=== PATIENT | female | born 1930 | race Caucasian/White ===

== ENCOUNTER 2016-12-05 14:51 | Inpatient (IN) ==
[2016-12-05 16:18] LABS: Bilirubin,Urine Negative (Negative); Blood,Urine Trace (Negative); Clarity,Urine Clear (Clear); Color,Urine Yellow (Yellow); Glucose,Urine (UA) Normal (Normal); Ketones,Urine 15 mg/dL (Negative); Leukocyte Esterase,Urine Negative (Negative); Nitrite,Urine Negative (Negative); Protein,Urine 100 mg/dL (Neg-Trace); Specific Gravity,Urine 1.014 (1.010-1.025); Urobilinogen,Urine Normal (Normal)
[2016-12-05 16:22] LABS: Albumin 3.1 g/dL (3.5-5.0); Albumin/Globulin Ratio 0.9 (1.1-2.2); Alkaline Phosphatase 41 Units/L (38-126); Aspartate Amino Transferase 9 Units/L (5-34); BUN/Creatinine Ratio 16 (6-26); Bilirubin,Direct 0.4 mg/dL (0.0-0.5); Bilirubin,Indirect 0.6 mg/dL (0.0-1.2); Blood Urea Nitrogen 19 mg/dL (7-20); Carbon Dioxide 23 mEq/L (19-29); Chloride 102 mEq/L (98-109); Globulin 3.5 g/dL (2.4-3.5); Glucose 162 mg/dL (70-99); Osmolality,Calculated 286 (280-300); Potassium 3.9 mEq/L (3.5-4.5); Sodium 135 mEq/L (136-145); Total Protein 6.6 g/dL (6.0-8.3); eGFR For African Americans 53 (> 60); eGFR For Non-African Americans 44 (> 60)
[2016-12-05 16:24] LABS: Bacteria,Urine None Seen per hpf (None-Few); Hyaline Casts,Urine Few per lpf (None-Few); Squamous Epithelial Cell,Urine Many per lpf (None-Few); WBC,Urine 0-3 per hpf (0-3)
[2016-12-05 16:26] LABS: Alanine Aminotransferase < 6 Units/L (0-55); Ethanol < 10 mg/dL (0-10)
[2016-12-05 16:27] LABS: Amphetamine Screen,Urine Negative ng/mL (Cutoff=1000); Barbiturate Screen,Urine Negative ng/mL (Cutoff=200); Benzodiazepines Screen,Urine Negative ng/mL (Cutoff=200); Cannabinoid Screen,Urine Negative ng/mL (Cutoff = 50); Cocaine Screen,Urine Negative ng/mL (Cutoff= 300); Opiate Screen,Urine Negative ng/mL (Cutoff=300); Phencyclidine Screen,Urine Negative ng/mL (Cutoff=25)
[2016-12-05 16:45] LABS: Thyroid Stimulating Hormone 3.483 mcIU/mL (0.350-4.840)
[2016-12-05 16:50] LABS: Hematocrit 20.1 % (35.3-44.9); Hemoglobin 6.5 g/dL (11.5-15.4); Immature Platelets 6.8 % (1.1-6.1); Mean Corpuscular HGB Conc 32.3 g/dL (31.6-35.5); Mean Corpuscular Hemoglobin 36.5 pg (28.0-33.3); Mean Corpuscular Volume 112.9 fL (83.0-100.0); Mean Platelet Volume 11.1 fL (9.4-12.4); Nucleated Red Blood Cells 0.6 /100 WBC (0); Platelet Count 134 K/mcL (140-400); Red Blood Count 1.78 M/mcL (3.82-4.97); Red Cell Distribution Width 22.4 % (11.5-14.5)
[2016-12-05 17:14] LABS: Anisocytosis 1+ (Not Present); Lymphocytes # 2.5 K/mcL (0.6-4.6); Macrocytosis Present (Not Present); Monocytes # 0.9 K/mcL (0.0-1.3); Neutrophils # 2.9 K/mcL (1.6-8.9); Polychromasia 1+ (Not Present)
[2016-12-05 17:45] LABS: INR 1.1; Prothrombin Time 12.1 Seconds (9.4-12.1)
[2016-12-05 17:48] LABS: Activated Partial Thrombo Time 34.8 Seconds (26.0-36.0)
[2016-12-06 04:55] LABS: Basophils % 0.1 %; Eosinophils % 0.1 %; Hematocrit 26.2 % (35.3-44.9); Immature Granulocytes % 1.1 % (0-4); Lymphocytes % 28.6 %; Mean Corpuscular HGB Conc 33.2 g/dL (31.6-35.5); Mean Corpuscular Hemoglobin 33.2 pg (28.0-33.3); Mean Platelet Volume 10.7 fL (9.4-12.4); Monocytes # 1.6 K/mcL (0.0-1.3); Monocytes % 22.6 %; Neutrophils # 3.3 K/mcL (1.6-8.9); Nucleated Red Blood Cells 0.9 /100 WBC (0); Platelet Count 112 K/mcL (140-400); Red Blood Count 2.62 M/mcL (3.82-4.97); Red Cell Distribution Width 23.2 % (11.5-14.5); Segmented Neutrophils % 47.5 %
[2016-12-06 04:56] LABS: Hemoglobin 8.7 g/dL (11.5-15.4)
[2016-12-06 05:05] LABS: Calcium 8.6 mg/dL (8.6-10.8); Potassium 3.9 mEq/L (3.5-4.5)
[2016-12-06 05:25] LABS: Anisocytosis 2+ (Not Present); Platelet Estimate Slight Decrease (Normal)
[2016-12-06 05:26] LABS: Polychromasia 1+ (Not Present)
[2016-12-07 05:19] LABS: Hematocrit 26.9 % (35.3-44.9); Hemoglobin 9.2 g/dL (11.5-15.4)
[2016-12-07 05:35] LABS: Calcium 8.8 mg/dL (8.6-10.8); Potassium 3.4 mEq/L (3.5-4.5)
[2016-12-08 09:13] LABS: Hematocrit 27.8 % (35.3-44.9); Hemoglobin 9.3 g/dL (11.5-15.4); Mean Corpuscular HGB Conc 33.5 g/dL (31.6-35.5); Mean Corpuscular Hemoglobin 33.9 pg (28.0-33.3); Mean Corpuscular Volume 101.5 fL (83.0-100.0); Mean Platelet Volume 11.6 fL (9.4-12.4); Nucleated Red Blood Cells 0.4 /100 WBC (0); Platelet Count 122 K/mcL (140-400); Red Blood Count 2.74 M/mcL (3.82-4.97)
[2016-12-08 09:28] LABS: Calcium 8.8 mg/dL (8.6-10.8); Potassium 3.2 mEq/L (3.5-4.5)
[2016-12-08 09:34] LABS: Lymphocytes # 4.1 K/mcL (0.6-4.6); Monocytes # 2.1 K/mcL (0.0-1.3); Neutrophils # 7.9 K/mcL (1.6-8.9); Platelet Estimate Normal (Normal); Reactive Lymphocytes Present (Not Present)
[2016-12-08 09:35] LABS: Polychromasia 1+ (Not Present)
[2016-12-09 08:38] LABS: Calcium 7.9 mg/dL (8.6-10.8); Potassium 3.5 mEq/L (3.5-4.5)
[2016-12-09 09:14] LABS: Basophils % 0.1 %; Eosinophils % 0.1 %; Mean Platelet Volume 11.3 fL (9.4-12.4)
[2016-12-09 09:16] LABS: Hematocrit 25.2 % (35.3-44.9); Hemoglobin 8.1 g/dL (11.5-15.4); Immature Granulocytes % 1.1 % (0-4); Immature Platelets 6.1 % (1.1-6.1); Lymphocytes # 1.4 K/mcL (0.6-4.6); Lymphocytes % 15.4 %; Mean Corpuscular HGB Conc 32.1 g/dL (31.6-35.5); Mean Corpuscular Hemoglobin 32.9 pg (28.0-33.3); Mean Corpuscular Volume 102.4 fL (83.0-100.0); Monocytes % 32.3 %; Neutrophils # 4.5 K/mcL (1.6-8.9); Nucleated Red Blood Cells 0.3 /100 WBC (0); Red Blood Count 2.46 M/mcL (3.82-4.97); Red Cell Distribution Width 21.9 % (11.5-14.5)
[2016-12-09 09:17] LABS: Monocytes # 2.8 K/mcL (0.0-1.3); Platelet Count 96 K/mcL (140-400)
[2016-12-10 05:24] LABS: Hematocrit 25.8 % (35.3-44.9); Hemoglobin 8.3 g/dL (11.5-15.4); Mean Corpuscular HGB Conc 32.2 g/dL (31.6-35.5); Mean Corpuscular Hemoglobin 32.7 pg (28.0-33.3); Mean Corpuscular Volume 101.6 fL (83.0-100.0); Mean Platelet Volume 11.6 fL (9.4-12.4); Nucleated Red Blood Cells 0.3 /100 WBC (0); Platelet Count 115 K/mcL (140-400); Red Blood Count 2.54 M/mcL (3.82-4.97); Red Cell Distribution Width 21.2 % (11.5-14.5)
[2016-12-10 05:38] LABS: Calcium 8.4 mg/dL (8.6-10.8); Potassium 3.1 mEq/L (3.5-4.5)
[2016-12-10 06:37] LABS: Lymphocytes # 1.3 K/mcL (0.6-4.6); Monocytes # 3.8 K/mcL (0.0-1.3); Neutrophils # 10.7 K/mcL (1.6-8.9); Platelet Estimate Slight Decrease (Normal)
[2016-12-10 06:38] LABS: Hypochromasia Present (Not Present)
[2016-12-10 17:19] LABS: Source,Synovial Fluid left knee
[2016-12-10 17:41] LABS: Glucose,Synovial Fluid 169 mg/dL (No Ref Range)
[2016-12-10 18:11] LABS: Appearance,Synovial Fluid Clear (Clear-Hazy); Color,Synovial Fluid Straw (Straw)
[2016-12-11 10:49] LABS: Hematocrit 22.1 % (35.3-44.9); Hemoglobin 7.2 g/dL (11.5-15.4); Mean Corpuscular HGB Conc 32.6 g/dL (31.6-35.5)
[2016-12-11 10:50] LABS: Eosinophils % 0.1 %; Immature Granulocytes % 1.1 % (0-4); Immature Platelets 6.7 % (1.1-6.1); Lymphocytes # 1.6 K/mcL (0.6-4.6); Lymphocytes % 21.7 %; Mean Corpuscular Volume 101.4 fL (83.0-100.0); Monocytes % 26.8 %; Neutrophils # 3.8 K/mcL (1.6-8.9); Nucleated Red Blood Cells 0.4 /100 WBC (0); Red Blood Count 2.18 M/mcL (3.82-4.97); Red Cell Distribution Width 21.8 % (11.5-14.5); Segmented Neutrophils % 50.3 %
[2016-12-11 10:51] LABS: Platelet Count 80 K/mcL (140-400)
[2016-12-11 10:59] LABS: Potassium 3.3 mEq/L (3.5-4.5)
[2016-12-11 11:42] LABS: Anisocytosis 2+ (Not Present); Basophilic Stippling 1+ (Not Present); Helmet Cells Present (Not Present); Platelet Estimate Decreased (Normal)
[2016-12-11 11:43] LABS: Macrocytosis Present (Not Present)
[2016-12-12 12:27] LABS: Basophils % 0.2 %; Eosinophils % 0.6 %; Hematocrit 22.5 % (35.3-44.9); Hemoglobin 7.2 g/dL (11.5-15.4); Immature Granulocytes % 1.1 % (0-4); Lymphocytes # 1.8 K/mcL (0.6-4.6); Lymphocytes % 28.3 %; Mean Corpuscular Hemoglobin 33.3 pg (28.0-33.3); Mean Corpuscular Volume 104.2 fL (83.0-100.0); Mean Platelet Volume 11.9 fL (9.4-12.4); Monocytes # 1.5 K/mcL (0.0-1.3); Monocytes % 23.8 %; Neutrophils # 2.9 K/mcL (1.6-8.9); Red Blood Count 2.16 M/mcL (3.82-4.97); Red Cell Distribution Width 21.7 % (11.5-14.5)
[2016-12-12 12:28] LABS: Platelet Count 88 K/mcL (140-400)
[2016-12-12 12:44] LABS: Calcium 8.3 mg/dL (8.6-10.8); Potassium 3.8 mEq/L (3.5-4.5)
[2016-12-12 12:46] LABS: Platelet Estimate Decreased (Normal)
[2016-12-12 12:47] LABS: Basophilic Stippling 1+ (Not Present); Macrocytosis Present (Not Present)
[2016-12-12 18:48] VITALS: BP 163/63
== END 2016-12-12 19:26 | DRG 812 ==
LOC: EMEROO 14:51 → 3ANU 14:51 → SUATTDRO 18:52 → 3ANU 20:14
PROVIDERS: ADMIT Family Medicine; ATTEND Internal Medicine Endocrinology, Diabetes & Metabolism

== ENCOUNTER 2016-12-27 09:16 | Observation (INO) ==
--- NOTE | 2016-12-27 09:31 | Emergency Department Note ---
Disposition Clinical Impression: Anemia Qualifiers: Iron deficiency anemia type: unspecified iron deficiency Disposition: Admitted As Inpatient Condition: Fair General Adult HPI - General Chief complaint: ED General Medical Stated complaint: low hgb Time Seen by Provider: 12/27/16 09:18 Source: EMS Limitations: no limitations Nursing Notes Reviewed: Yes Vital Signs Reviewed: Yes - History of Present Illness HPI Narrative: Patient presents from the [facility] due to abnormal labs. Per report lab so was 5.7. Patient does admit to some shortness of breath but has no other complaints. Patient states she is not sure why she is here. Patient denies chest pain denies dizziness. Review of the medical chart reveals the patient has had similar symptoms in the past. Patient denies blood from her stool or nausea or vomiting. Pain Scale: 0 - Related Data Home Medications Medication Instructions Recorded Confirmed Cetirizine HCl [All Day Allergy] 10 mg PO DAILY PRN 09/30/16 09/30/16 Cyclobenzaprine HCl 5 mg PO HS PRN 09/30/16 12/05/16 Donepezil HCl [Aricept] 10 mg PO HS 09/30/16 09/30/16 Ferrous Sulfate 325 mg PO BIDWM 09/30/16 09/30/16 Insulin ASPART [NovoLOG] 7 unit SQ BID 09/30/16 12/05/16 Insulin DETEMIR [Levemir] 12 unit SQ HS 09/30/16 12/05/16 Levothyroxine [Synthroid] 75 mcg PO 0630 09/30/16 09/30/16 Meclizine HCl [Verticalm] 25 mg PO TID PRN 09/30/16 09/30/16 Simvastatin [Zocor] 40 mg PO HS 09/30/16 12/05/16 Aspirin Enteric Coated [Aspirin EC] 81 mg PO DAILY 12/05/16 12/05/16 Lisinopril/Hydrochlorothiazide 1 each PO DAILY 12/05/16 12/05/16 [Zestoretic 20-12.5 mg Tablet] Previous Rx's Medication Instructions Recorded Amlodipine [Norvasc] 5 mg PO DAILY #30 tablet 12/12/16 Labetalol [Trandate] 100 mg PO BID #60 tablet 12/12/16 Naproxen [Naprosyn] 250 mg PO BIDWM #14 tablet 03/02/17 Omeprazole [PriLOSEC] 20 mg PO BIDAC #60 cap 12/12/16 Allergies Allergy/AdvReac Type Severity Reaction Status Date / Time Penicillins AdvReac Palpitation Verified 09/30/16 22:03 s Vasoconstrictors AdvReac Confusion Uncoded 09/30/16 22:03 All systems ED: reviewed and negative except as stated. Past Medical History - Past Medical History Source: patient Medical history: Reports: atrial fibrillation, dementia, diabetes, GERD, hyperlipidemia, hypertension, renal disease, thyroid disease Surgical history: Reports: appendectomy Psychiatric history: Reports: no psych history MOLD BURNER history: Reports: no MOLD BURNER history - Social History Smoking Status: Never smoker Smokeless Tobacco Status: No Alcohol use: Reports: none Drug use: Reports: none Physical Exam - General Limitations: altered mental status General appearance: alert - Head Head exam: atraumatic, normocephalic, normal inspection - Eye Eye exam: Present: normal appearance, PERRL, EOMI - ENT ENT exam: normal exam, normal oropharynx, mucous membranes moist - Neck Neck exam: Present: normal inspection, full ROM, trachea midline - Chest Chest inspection: Present: normal inspection, symmetric chest wall rise - Respiratory Respiratory exam: Present: normal lung sounds bilaterally - Cardiovascular Cardiovascular exam: Present: regular rate, normal rhythm, normal heart sounds - Abdominal Exam Abdominal exam: Present: soft, Non-Tender. Absent: tenderness, distention, guarding, rebound, rigidity - Extremities Exam Extremities exam: Present: normal inspection, full ROM. Absent: tenderness, pedal edema - Back Exam Back exam: Present: normal inspection, full ROM. Absent: tenderness - Neurological Exam Neurological exam: Present: alert, oriented X3 - Psychiatric Psychiatric exam: Present: normal affect, normal mood - Skin Skin exam: Present: warm, dry, intact, normal color Course Vital Signs Temperature 97.2 F L 12/27/16 09:18 Pulse Rate 65 12/27/16 09:18 Respiratory Rate 18 12/27/16 09:18 Blood Pressure 163/101 12/27/16 09:18 O2 Sat by Pulse Oximetry 91 L 12/27/16 09:18 Temperature 97.2 F L 12/27/16 09:18 Pulse Rate 59 12/27/16 10:20 Respiratory Rate 18 12/27/16 10:20 Blood Pressure 162/65 12/27/16 10:20 O2 Sat by Pulse Oximetry 93 L 12/27/16 10:20 Oxygen Delivery Oxygen Delivery Nasal Cannula Medical Decision Making - Lab Data Result diagrams: 12/27/16 09:40 12/27/16 09:40 Lab Results 12/27/16 12/27/16 12/27/16 Range/Units 09:40 09:40 09:40 WBC 10.9 (4.3-11.1) K/mcL RBC 1.78 L (3.82-4.97) M/mcL Hgb 5.7 L* (11.5-15.4) g/dL Hct 18.1 L (35.3-44.9) % MCV 101.7 H (83.0-100.0) fL MCH 32.0 (28.0-33.3) pg MCHC 31.5 L (31.6-35.5) g/dL RDW 21.2 H (11.5-14.5) % Plt Count 139 L (140-400) K/mcL MPV 11.8 (9.4-12.4) fL Seg Neutrophils % 66.0 % Lymphocytes % 14.0 % Monocytes % 18.0 % Basophils % 2.0 % Neutrophils # 7.2 (1.6-8.9) K/mcL Lymphocytes # 1.5 (0.6-4.6) K/mcL Monocytes # 2.0 H (0.0-1.3) K/mcL Basophils # 0.2 (0.0-0.2) K/mcL Nucleated RBCs/100 WBC 0.8 H (0) /100 WBC Smudge Cells Present A (Not Present) Platelet Estimate Normal (Normal) Hypochromasia Present A (Not Present) Anisocytosis 3+ A (Not Present) Microcytosis Present A (Not Present) PT 12.2 H (9.4-12.1) Seconds INR 1.1 APTT 31.8 (26.0-36.0) Seconds Sodium 134 L (136-145) mEq/L Potassium 4.0 (3.5-4.5) mEq/L Chloride 102 (98-109) mEq/L Carbon Dioxide 25 (19-29) mEq/L BUN 29 H (7-20) mg/dL Creatinine 1.70 H (0.57-1.11) mg/dL Est GFR ( Amer) 34 L (> 60) Est GFR (Non-Af Amer) 28 L (> 60) BUN/Creatinine Ratio 17 (6-26) Glucose 265 H (70-99) mg/dL Calculated Osmolality 293 (280-300) Lactic Acid (0.5-2.2) mmol/L Calcium 8.8 (8.6-10.8) mg/dL Total Bilirubin 0.9 (0.2-1.2) mg/dL AST 7 (5-34) Units/L ALT 10 (0-55) Units/L Alkaline Phosphatase 54 (38-126) Units/L Troponin I (0-0.03) ng/mL B-Natriuretic Peptide (0-100) pg/mL Serum Total Protein 6.6 (6.0-8.3) g/dL Albumin 2.8 L (3.5-5.0) g/dL Globulin 3.8 H (2.4-3.5) g/dL Albumin/Globulin Ratio 0.7 L (1.1-2.2) Stool Occult Blood (Negative) Blood Type Antibody Screen Crossmatch 12/27/16 12/27/16 12/27/16 Range/Units 09:40 09:40 09:40 WBC (4.3-11.1) K/mcL RBC (3.82-4.97) M/mcL Hgb (11.5-15.4) g/dL Hct (35.3-44.9) % MCV (83.0-100.0) fL MCH (28.0-33.3) pg MCHC (31.6-35.5) g/dL RDW (11.5-14.5) % Plt Count (140-400) K/mcL MPV (9.4-12.4) fL Seg Neutrophils % % Lymphocytes % % Monocytes % % Basophils % % Neutrophils # (1.6-8.9) K/mcL Lymphocytes # (0.6-4.6) K/mcL Monocytes # (0.0-1.3) K/mcL Basophils # (0.0-0.2) K/mcL Nucleated RBCs/100 WBC (0) /100 WBC Smudge Cells (Not Present) Platelet Estimate (Normal) Hypochromasia (Not Present) Anisocytosis (Not Present) Microcytosis (Not Present) PT (9.4-12.1) Seconds INR APTT (26.0-36.0) Seconds Sodium (136-145) mEq/L Potassium (3.5-4.5) mEq/L Chloride (98-109) mEq/L Carbon Dioxide (19-29) mEq/L BUN (7-20) mg/dL Creatinine (0.57-1.11) mg/dL Est GFR ( Amer) (> 60) Est GFR (Non-Af Amer) (> 60) BUN/Creatinine Ratio (6-26) Glucose (70-99) mg/dL Calculated Osmolality (280-300) Lactic Acid 1.3 (0.5-2.2) mmol/L Calcium (8.6-10.8) mg/dL Total Bilirubin (0.2-1.2) mg/dL AST (5-34) Units/L ALT (0-55) Units/L Alkaline Phosphatase (38-126) Units/L Troponin I 0.01 (0-0.03) ng/mL B-Natriuretic Peptide 225 H (0-100) pg/mL Serum Total Protein (6.0-8.3) g/dL Albumin (3.5-5.0) g/dL Globulin (2.4-3.5) g/dL Albumin/Globulin Ratio (1.1-2.2) Stool Occult Blood (Negative) Blood Type Antibody Screen Crossmatch 12/27/16 12/27/16 Range/Units 09:40 10:30 WBC (4.3-11.1) K/mcL RBC (3.82-4.97) M/mcL Hgb (11.5-15.4) g/dL Hct (35.3-44.9) % MCV (83.0-100.0) fL MCH (28.0-33.3) pg MCHC (31.6-35.5) g/dL RDW (11.5-14.5) % Plt Count (140-400) K/mcL MPV (9.4-12.4) fL Seg Neutrophils % % Lymphocytes % % Monocytes % % Basophils % % Neutrophils # (1.6-8.9) K/mcL Lymphocytes # (0.6-4.6) K/mcL Monocytes # (0.0-1.3) K/mcL Basophils # (0.0-0.2) K/mcL Nucleated RBCs/100 WBC (0) /100 WBC Smudge Cells (Not Present) Platelet Estimate (Normal) Hypochromasia (Not Present) Anisocytosis (Not Present) Microcytosis (Not Present) PT (9.4-12.1) Seconds INR APTT (26.0-36.0) Seconds Sodium (136-145) mEq/L Potassium (3.5-4.5) mEq/L Chloride (98-109) mEq/L Carbon Dioxide (19-29) mEq/L BUN (7-20) mg/dL Creatinine (0.57-1.11) mg/dL Est GFR ( Amer) (> 60) Est GFR (Non-Af Amer) (> 60) BUN/Creatinine Ratio (6-26) Glucose (70-99) mg/dL Calculated Osmolality (280-300) Lactic Acid (0.5-2.2) mmol/L Calcium (8.6-10.8) mg/dL Total Bilirubin (0.2-1.2) mg/dL AST (5-34) Units/L ALT (0-55) Units/L Alkaline Phosphatase (38-126) Units/L Troponin I (0-0.03) ng/mL B-Natriuretic Peptide (0-100) pg/mL Serum Total Protein (6.0-8.3) g/dL Albumin (3.5-5.0) g/dL Globulin (2.4-3.5) g/dL Albumin/Globulin Ratio (1.1-2.2) Stool Occult Blood Negative (Negative) Blood Type O NEGATIVE Antibody Screen NEGATIVE Crossmatch See Detail - EKG Data EKG #1 EKG attestation: Yes I reviewed and interpreted this EKG. EKG shows normal: sinus rhythm Rate: normal Rhythm: NSR Critical Care Time Total Critical Care Time: 30 Attestation: Critical care performed: Time is exclusive of separately billable procedures. Time includes: direct patient care, patient reassessment, coordination of patient care, interpretation of data (laboratory data, radiology data, and respiratory data), review of patient's medical records, medical consultation and documentation of patient care. Procedures included in critical care time: Procedures excluded from critical care time:
[2016-12-27 10:03] LABS: Mean Corpuscular Volume 101.7 fL (83.0-100.0); Red Cell Distribution Width 21.2 % (11.5-14.5)
[2016-12-27 10:05] LABS: Hematocrit 18.1 % (35.3-44.9); Mean Corpuscular HGB Conc 31.5 g/dL (31.6-35.5); Mean Platelet Volume 11.8 fL (9.4-12.4); Nucleated Red Blood Cells 0.8 /100 WBC (0); Platelet Count 139 K/mcL (140-400); Red Blood Count 1.78 M/mcL (3.82-4.97)
[2016-12-27 10:07] LABS: Hemoglobin 5.7 g/dL (11.5-15.4)
[2016-12-27 10:19] LABS: Albumin 2.8 g/dL (3.5-5.0); Albumin/Globulin Ratio 0.7 (1.1-2.2); Bilirubin,Total 0.9 mg/dL (0.2-1.2); Calcium 8.8 mg/dL (8.6-10.8); Globulin 3.8 g/dL (2.4-3.5); Total Protein 6.6 g/dL (6.0-8.3)
[2016-12-27 10:23] LABS: Anisocytosis 3+ (Not Present); Basophils # 0.2 K/mcL (0.0-0.2); Hypochromasia Present (Not Present); INR 1.1; Lymphocytes # 1.5 K/mcL (0.6-4.6); Microcytosis Present (Not Present); Neutrophils # 7.2 K/mcL (1.6-8.9); Platelet Estimate Normal (Normal); Prothrombin Time 12.2 Seconds (9.4-12.1)
[2016-12-27 10:24] LABS: Smudge Cells Present (Not Present)
[2016-12-27 10:26] LABS: Activated Partial Thrombo Time 31.8 Seconds (26.0-36.0)
[2016-12-27] MEDS ORDERED: Ondansetron 4 MG/2 ML VIAL IV ONE (11:00)
[2016-12-27] MEDS ORDERED: 0.9 % Sodium Chloride 250 ML ONE ×2 (13:19→17:44)
[2016-12-27] MEDS ORDERED: Naloxone 0.4 MG/ML INJ IVP PRN (13:20)
[2016-12-27] MEDS ORDERED: Acetaminophen 325 MG TABLET PO PRN (13:20)
--- NOTE | 2016-12-27 14:27 | Internal Med History&Physical ---
Date of Encounter: 12/27/16 Time of Encounter: 13:15 Assessment and Plan (1) Severe anemia Current visit: Yes Status: Acute Acute on chronic anemia. Patient with severe anemia. Will transfuse 2 units of packed red blood cells. 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 Observation in the hospital for now. (2) Type 2 diabetes mellitus Current visit: Yes Status: Chronic Monitor blood sugars. Sliding scale insulin. Diabetic diet. Qualifiers: Diabetes mellitus complication status: with kidney complications Diabetes mellitus complication detail: with chronic kidney disease Diabetes mellitus residential insulin use: with exterminator termite use Chronic kidney disease stage: stage 3 (moderate) Qualified Code(s): E11.22 - Type 2 diabetes mellitus with diabetic chronic kidney disease; N18.3 - Chronic kidney disease, stage 3 ( moderate); Z79.4 - exterminator helper (current) use of insulin (3) CKD (chronic kidney disease) stage 3, GFR 30-59 ml/min Current visit: No Status: Chronic BUN and creatinine around her baseline. Will follow renal function closely. (4) Essential hypertension Current visit: Yes Status: Chronic Uncontrolled. Resume home medications. Monitor blood pressure closely. (5) Pedal edema Current visit: Yes Status: Chronic Will give 1 dose of IV Lasix between transfusions. Internal Medicine - H&P: HPI Chief complaint: Generalized weakness and fatigue Admitted From: Emergency Dept Plans for Post Hospital Care: Transfer Senior Care Facility History of present illness: Ms. Booth is a 86 year old female with history of atrial fibrillation, dementia , diabetes, hypertension and chronic anemia was sent to the ER from her long-term with generalized weakness and fatigue. She was found to have low hemoglobin counts and blood work. She has been having some nausea. Denies any vomiting. She had been hospitalized here last month and had been worked up for anemia and was not found to have any acute source of bleeding. She underwent bone marrow biopsy. 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 She follows up with oncology at [facility]. She denies any melena or hematochezia. No hematemesis. No cough shortness of breath or fevers. No chest pain or abdominal pain. She does develop swelling in her lower extremities. Past Med Surg Social Fam HX - Past Medical History Source: old records reviewed Medical history: atrial fibrillation, dementia, diabetes, GERD, hyperlipidemia, hypertension, renal disease, thyroid disease Psychiatric history: no psych history - Past Surgical History Surgical History: appendectomy - Social History Smoking Status: Never smoker Smokeless Tobacco Status: No Alcohol use: none Drug use: none - Family History Mother Living Status: Hx Family Cardiac Disorders: Yes (ID) Internal Medicine - H&P: Meds Cetirizine HCl [All Day Allergy] 10 mg PO DAILY PRN 09/30/16 [History] Cyclobenzaprine HCl 5 mg PO HS PRN 09/30/16 [History] Donepezil HCl [Aricept] 10 mg PO HS 09/30/16 [History] Ferrous Sulfate 325 mg PO BIDWM 09/30/16 [History] Insulin ASPART [NovoLOG] 7 unit SQ TID 09/30/16 [History] Insulin DETEMIR [Levemir] 15 unit SQ HS 09/30/16 [History] Levothyroxine [Synthroid] 75 mcg PO DAILY 09/30/16 [History] Meclizine HCl [Verticalm] 25 mg PO TID PRN 09/30/16 [History] Simvastatin [Zocor] 40 mg PO HS 09/30/16 [History] Aspirin Enteric Coated [Aspirin EC] 81 mg PO DAILY 12/05/16 [History] Lisinopril/Hydrochlorothiazide [Zestoretic 20-12.5 mg Tablet] 1 tab PO DAILY [History] Amlodipine [Norvasc] 5 mg PO DAILY #30 tablet 12/12/16 [Rx] Labetalol [Trandate] 100 mg PO BID #60 tablet 12/12/16 [Rx] Omeprazole [PriLOSEC] 20 mg PO BIDAC #60 cap 12/12/16 [Rx] Acetaminophen [Tylenol] 1,000 mg PO BID PRN 12/27/16 [History] Bisacodyl [Dulcolax] 10 mg RC DAILY PRN 12/27/16 [History] Magnesium Hydroxide [Milk of Magnesia] 30 ml PO DAILY PRN 12/27/16 [History] Prochlorperazine Maleate [Compazine] 10 mg PO Q6HR PRN 12/27/16 [History] Allergies Penicillins Adverse Reaction (Verified 09/30/16 22:03) Palpitations Vasoconstrictors Adverse Reaction (Uncoded 09/30/16 22:03) Confusion All Systems PM: A 10-system review of systems was performed and is negative for pertinent findings except as documented above in the HPI. - Constitutional Constitutional: fatigue, lethargy, malaise, no chills, no fever(s), no night sweats - EENT Eyes: no change in vision, no discharge, no pain, no photophobia Ears: no ear discharge, no ear pain, no tinnitus Nose, mouth and throat: no dysphagia, no nasal discharge, no neck pain, no sore throat - Cardiovascular Cardiovascular ROS IM: no chest pain, no diaphoresis, no dyspnea, no lightheadedness, no palpitations, no syncope - Respiratory Respiratory: no cough, no dyspnea, no wheezing, no excessive phlegm production - Gastrointestinal Gastrointestinal: no abdominal pain, no diarrhea, no hematemesis, no hematochezia, no melena, no nausea, no vomiting - Genitourinary Genitourinary: no change in urinary stream, no dysuria, no flank pain, no hematuria - Musculoskeletal Musculoskeletal ROS IM: no numbness, no tingling - Integumentary Integumentary IM: no rash, no unusual bruising - Neurological Neurological ROS: no confusion, no convulsions, no focal weakness, no numbness, no tingling, no tremor(s) - Hematologic/Lymphatic Hematologic/Lymphatic: no easy bruising - Constitutional Vitals: Temp Pulse Resp BP Pulse Ox 97.3 F L 61 16 162/67 96 12/27/16 14:10 12/27/16 14:10 12/27/16 14:10 12/27/16 14:10 12/27/16 14:10 General appearance: Present: cooperative, A&O X 2, mild distress, answers questions appropriately - Eye Eye exam: Present: EOMI, PERRL, conjuntiva pink, sclera anicteric Additional comments: Conjunctival pallor present - ENT ENT exam: Present: mucous membranes moist - Neck Neck exam general surgery: Present: supple, trachea midline. Absent: lymphadenopathy - Respiratory Respiratory exam: Present: CTAB. Absent: accessory muscle use, rales, rhonchi, wheezes - Cardiovascular Cardiovascular exam: Present: RRR, +S1, +S2, systolic murmur. Absent: diastolic murmur, gallop, rubs - GI/Abdominal GI/Abdominal exam: Present: normal bowel sounds, soft, no peritoneal signs. Absent: distended, tenderness - Extremities Exam Extremities exam: Present: warm, radial pulses palpable and symetrical. Absent : calf tenderness, cyanotic, pedal edema - Neurological Exam Neurological exam: Present: alert, CN II-XII intact, no focal deficits. Absent : facial droop, speech deficit - Skin Skin exam: Present: dry, intact, pallor Internal Med - H&P Results - Labs CBC & Chem 7: 12/27/16 09:40 12/27/16 09:40 - Attending Attestation This document has been at least partially created by [employer] recognition technology by Dr. Muñoz. Errors in grammar, wording or other phrases may exist. If errors are found after the documentation is signed, they will be addressed individually in the addendum section of this document when appropriate. - VTE Reasons for not Prescribing Prophylaxis: Treatment not Indicated - Low risk for VTE
[2016-12-27] MEDS ORDERED: Furosemide 40 MG/4 ML VIAL IVP ONE (14:34)
[2016-12-27] MEDS ORDERED: Bisacodyl 10 MG RECTAL SUPPOSITORY RC PRN (14:35)
[2016-12-27] MEDS ORDERED: Loratadine 10 MG TABLET PO PRN (14:35)
[2016-12-27] MEDS ORDERED: *HR* Dextrose 50 % in Water (Syg) 50 ML SYRINGE IVP PRN (14:50)
[2016-12-27] MEDS ORDERED: Dextrose Gel 15 GM PO PRN ×2 (14:50)
[2016-12-27] MEDS ORDERED: D5% in Water 1,000 ML IV PRN (14:50)
--- NOTE | 2016-12-27 16:44 | Electrocardiograph Report ---
[address] [address] Test Date: 2016-12-27 Pat Name: Morteza Booth Department: 102 Room: [facility] Gender: F Director [employer]: : [id number] Requested By: Be Kerr Order Number: [id number] Reading MD: Lilia Swenson Measurements Intervals [place] Rate: 68 P: 3 ID: [id number] QRS: -23 QRSD: 100 T: 31 QT: 412 QTc: 430 Interpretive Statements SINUS RHYTHM BORDERLINE LEFT AXIS DEVIATION [QRS AXIS < -20] Electronically Signed On 12-27-2016 16:42:59 EDT by Lilia Swenson
--- NOTE | 2016-12-27 17:31 | Oncology Inp Consult Note ---
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 Consider wkly labs with supportive transfusion in clinic Rx with hypomethylating agents can be considered as an outpatient and ESAs PAtient was discussed bone marrow findings and treatment plan as above.She will be seen in clinic next -Friday to discuss and initiate above Rx plan. - Data of Consult Requesting Physician: Anila Valera MD Primary Care Provider: PCP NO - Consult Narrative Reason for consult: anemia, MDS History of present illness: HPI This 86-year-old female with medical history significant for hypertension, diabetes mellitus, kidney problems, renal insufficiency seen in the clinic for further evaluation off anemia. Hemoglobin in July 2014 was 12.5 subsequently declined to 7.1 in August 2016 and is currently at 7.6 2016. Patient received transfusion support previously. She had a colonoscopy in 2015 which was a poor preparation and no other findings reported. Her white blood cell count was 6.8 hemoglobin 7.6 and platelets of 1 65,000 10/30/2016. Creatinine is 1.4, GFR at 40s 26 TSH 4.6 and ferritin 425. Underwent upper GI endoscopy and colonoscopy no active bleeding was found. She also completed a bone marrow aspiration biopsy in the hospital for further evaluation of her anemia. BM bx -CMML, monocytosis, monoblasts promocytes and dysplastic granulocytes consistent with MDS CD4 positive blasts are upto 10-20%-CMML-2 12/11/16 Is hospitalized again with a hemoglobin of around 5.7 g she is currently receiving blood transfusion. She has lower extremity swelling feels cold fatigued and shortness of breath with exertion. Past Med Surg Social Fam HX - Past Medical History Medical history: atrial fibrillation, dementia, diabetes, GERD, hyperlipidemia, hypertension, renal disease, thyroid disease Psychiatric history: no psych history - Past Surgical History Surgical History: appendectomy - Social History Smoking Status: Never smoker Smokeless Tobacco Status: No Alcohol use: none Drug use: none - Family History Mother Living Status: Hx Family Cardiac Disorders: Yes ([place]) Medications and Allergies Cetirizine HCl [All Day Allergy] 10 mg PO DAILY PRN 09/30/16 [History] Cyclobenzaprine HCl 5 mg PO HS PRN 09/30/16 [History] Donepezil HCl [Aricept] 10 mg PO HS 09/30/16 [History] Ferrous Sulfate 325 mg PO BIDWM 09/30/16 [History] Insulin ASPART [NovoLOG] 7 unit SQ TID 09/30/16 [History] Insulin DETEMIR [Levemir] 15 unit SQ HS 09/30/16 [History] Levothyroxine [Synthroid] 75 mcg PO DAILY 09/30/16 [History] Meclizine HCl [Verticalm] 25 mg PO TID PRN 09/30/16 [History] Simvastatin [Zocor] 40 mg PO HS 09/30/16 [History] Aspirin Enteric Coated [Aspirin EC] 81 mg PO DAILY 12/05/16 [History] Lisinopril/Hydrochlorothiazide [Zestoretic 20-12.5 mg Tablet] 1 tab PO DAILY [History] Amlodipine [Norvasc] 5 mg PO DAILY #30 tablet 12/12/16 [Rx] Labetalol [Trandate] 100 mg PO BID #60 tablet 12/12/16 [Rx] Omeprazole [PriLOSEC] 20 mg PO BIDAC #60 cap 12/12/16 [Rx] Acetaminophen [Tylenol] 1,000 mg PO BID PRN 12/27/16 [History] Bisacodyl [Dulcolax] 10 mg RC DAILY PRN 12/27/16 [History] Magnesium Hydroxide [Milk of Magnesia] 30 ml PO DAILY PRN 12/27/16 [History] Prochlorperazine Maleate [Compazine] 10 mg PO Q6HR PRN 12/27/16 [History] Allergies Penicillins Adverse Reaction (Verified 09/30/16 22:03) Palpitations Vasoconstrictors Adverse Reaction (Uncoded 09/30/16 22:03) Confusion Review of systems: as in HPI Oncology - Exam - Constitutional Vitals: Temp Pulse Resp BP Pulse Ox 97.8 F 65 16 163/71 98 12/27/16 14:25 12/27/16 14:25 12/27/16 14:25 12/27/16 14:25 12/27/16 14:25 General appearance: obese - Head Head exam: Present: atraumatic, normal inspection - Eye Eye exam: Present: sclera anicteric - ENT ENT exam: Present: mucous membranes moist - Neck Neck exam: Present: normal inspection - Respiratory Respiratory exam: Present: CTAB - Cardiovascular Cardiovascular exam: Present: +S1, +S2 - GI/Abdominal GI/Abdominal exam: Present: normal bowel sounds, soft - Extremities Exam Extremities exam: Present: pedal edema - Neurological Exam Neurological exam: Present: alert, CN II-XII intact, oriented X3 - Skin Skin exam: Present: pallor Oncology - Results - Labs Labs: as in hPI Consult Discharge Plan - Plan Referrals: NO,PCP [Primary Care Provider] -
[2016-12-27] MEDS: Insulin LISPRO 300 UNITS/3 ML VIAL SQ SCH (17:33)
[2016-12-27] MEDS ORDERED: Insulin LISPRO 300 UNITS/3 ML VIAL SQ SCH (21:00)
[2016-12-27] MEDS ORDERED: Insulin DETEMIR 100 UNIT/ML X5UNITS SQ SCH (21:00)
[2016-12-27] MEDS ORDERED: amLODIPine 5 MG TABLET PO ONE (22:41)
[2016-12-27 23:19] LABS: Hematocrit 29.9 % (35.3-44.9); Hemoglobin 9.7 g/dL (11.5-15.4)
[2016-12-28] MEDS: Insulin LISPRO 300 UNITS/3 ML VIAL SQ SCH (08:04)
[2016-12-28] MEDS ORDERED: Furosemide 40 MG/4 ML VIAL IVP STA (08:22)
[2016-12-28] MEDS ORDERED: Lisinopril-HCTZ 20-12.5mg TABLET PO SCH (09:00)
[2016-12-28] MEDS ORDERED: Aspirin Enteric Coated 81 MG Tablet PO SCH (09:00)
[2016-12-28] MEDS ORDERED: amLODIPine 5 MG TABLET PO SCH (09:00)
[2016-12-28] MEDS ORDERED: Magnesium Sulfate 1 GM in D5% in Water 100 ML IVPB STA (09:55)
--- NOTE | 2016-12-28 09:58 | Discharge Summary ---
Date of Encounter: 12/28/16 Time of Encounter: 09:00 - Discharge Diagnosis (1) Severe anemia Priority: Primary Status: Acute (2) Pulmonary edema Priority: Primary Status: Acute Qualifiers: Chronicity: acute Qualified Code(s): J81.0 - Acute pulmonary edema (3) Hypoxia Priority: Primary Status: Acute (4) Macrocytic anemia Priority: Secondary Status: Chronic (5) CKD stage 4 secondary to hypertension Priority: Secondary Status: Chronic (6) Hypertension Priority: Secondary Status: Chronic Qualifiers: Hypertension type: essential hypertension Qualified Code(s): I10 - Essential (primary) hypertension (7) Type 2 diabetes mellitus Priority: Secondary Status: Chronic Qualifiers: Diabetes mellitus complication status: with kidney complications Diabetes mellitus complication detail: with chronic kidney disease Diabetes mellitus chcf insulin use: with chcf use Chronic kidney disease stage: stage 4 (severe) Qualified Code(s): E11.22 - Type 2 diabetes mellitus with diabetic chronic kidney disease; N18.4 - Chronic kidney disease, stage 4 (severe); 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 - Discharge Medications Prescriptions: Furosemide [Lasix] 20 mg PO BID 6 Days Home Medications: Cetirizine HCl [All Day Allergy] 10 mg PO DAILY PRN 09/30/16 [History] Cyclobenzaprine HCl 5 mg PO HS PRN 09/30/16 [History] Donepezil HCl [Aricept] 10 mg PO HS 09/30/16 [History] Ferrous Sulfate 325 mg PO BIDWM 09/30/16 [History] Insulin ASPART [NovoLOG] 7 unit SQ TID 09/30/16 [History] Insulin DETEMIR [Levemir] 15 unit SQ HS 09/30/16 [History] Levothyroxine [Synthroid] 75 mcg PO DAILY 09/30/16 [History] Meclizine HCl [Verticalm] 25 mg PO TID PRN 09/30/16 [History] Simvastatin [Zocor] 40 mg PO HS 09/30/16 [History] Aspirin Enteric Coated [Aspirin EC] 81 mg PO DAILY 12/05/16 [History] Lisinopril/Hydrochlorothiazide [Zestoretic 20-12.5 mg Tablet] 1 tab PO DAILY [History] Amlodipine [Norvasc] 5 mg PO DAILY #30 tablet 12/12/16 [Rx] Labetalol [Trandate] 100 mg PO BID #60 tablet 12/12/16 [Rx] Omeprazole [PriLOSEC] 20 mg PO BIDAC #60 cap 12/12/16 [Rx] Acetaminophen [Tylenol] 1,000 mg PO BID PRN 12/27/16 [History] Bisacodyl [Dulcolax] 10 mg RC DAILY PRN 12/27/16 [History] Magnesium Hydroxide [Milk of Magnesia] 30 ml PO DAILY PRN 12/27/16 [History] Prochlorperazine Maleate [Compazine] 10 mg PO Q6HR PRN 12/27/16 [History] Furosemide [Lasix] 20 mg PO BID 6 Days 12/28/16 [Rx] Allergies/Adverse Reactions: Allergies Penicillins Adverse Reaction (Verified 09/30/16 22:03) Palpitations Vasoconstrictors Adverse Reaction (Uncoded 09/30/16 22:03) Confusion Procedures/tests Complete & Pending: Procedures Performed prior 72 hours Category Date Time Status CT chest wo con [CT] Stat Cat Scan 12/28/16 08:23 Completed Date of admission: 12/27/16 12:01 Primary care physician: PCP NO Consults: 12/27/16 12:56 Consult to Equ[facility]et [CONS] Routine Reason for SW Consult: Patient resides at [facility]. Discharge plan to return. 12/27/16 14:20 Consult to Oncology Hematology [CONS] Routine Consulting Provider: Stephane Colin Reason for Consult: CMML 2 per path report Time Notified: 14:20 Call Completed: Yes - Patient Status Disposition: Transfer SNF Condition: Fair Functional capacity at discharge: uses cane/walker Overall status at discharge: patient is progressing back to baseline - Discharge Instructions Follow Up With: NO,PCP [Primary Care Provider] - - Diet and Activity Activity: resume usual activities as tolerated, wear oxygen at all times (2 L NC ) Diet: diabetic diet, low fat, low cholesterol, low salt diet, other (fluid restriction 1.8 L/day) Interval History: patient reports no chest pain. Mild dry cough this morning. she has chronic lower extremity edema. Hospital course: Ms. 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 she is a [facility] resident and was sent to our ED because of generalized weakness and fatigue. She received 2 units of packed red blood cell and a repeat hemoglobin is 9.7. Post-transfusion, she developed mild pulmonary edema and required 2L of oxygen via NC for which she received IV lasix and was started on fluid restriction. PLAN: Furosemide 20 mg bid for 3 days. Fluid restriction. CBC weekly. Consider echocardiogram as outpatient. onc follow up as outpatient. - Time Spent with Patient Total time spent providing and/or coordinating discharge services: - Constitutional Vitals: Temp Pulse Resp BP Pulse Ox 98.1 F 68 16 171/65 95 12/28/16 07:13 12/28/16 07:13 12/28/16 07:13 12/28/16 07:13 12/28/16 08:14 General appearance: Present: cooperative, A&O X 2, mild distress, answers questions appropriately - Eye Eye exam: Present: PERRL, sclera anicteric - Neck Neck exam general surgery: Present: supple, trachea midline. Absent: lymphadenopathy - Respiratory Respiratory exam: Present: rales (at lower bases) - Cardiovascular Cardiovascular exam: Present: RRR - GI/Abdominal GI/Abdominal exam: Present: normal bowel sounds, soft. Absent: distended, tenderness - Extremities Exam Extremities exam: Present: pedal edema. Absent: joint swelling - Back Exam Back exam: Absent: CVA tenderness (L), CVA tenderness (R) - Neurological Exam Neurological exam: Present: alert, oriented X3. Absent: facial droop, speech deficit - Skin Skin exam: Absent: rash - VTE Reasons for not Prescribing Prophylaxis: Treatment not Indicated - Low risk for VTE
[2016-12-28 10:14] VITALS: BP 146/76
--- NOTE | 2016-12-28 10:17 | Physician Discharge Referral ---
ExtendedCare Referral Info Transfer To: SNF Provider in Charge: lambert Provider in Charge after Transfer: PCP Institutional Level of Care: Skilled - Diagnosis (1) Severe anemia Status: Acute (2) Pulmonary edema Status: Acute (3) Hypoxia Status: Acute (4) Macrocytic anemia Status: Chronic (5) CKD stage 4 secondary to hypertension Status: Chronic (6) Hypertension Status: Chronic (7) Type 2 diabetes mellitus Status: Chronic - Transfer Medications Prescriptions: Furosemide [Lasix] 20 mg PO BID 6 Days Home Medications: Cetirizine HCl [All Day Allergy] 10 mg PO DAILY PRN 09/30/16 [History] Cyclobenzaprine HCl 5 mg PO HS PRN 09/30/16 [History] Donepezil HCl [Aricept] 10 mg PO HS 09/30/16 [History] Ferrous Sulfate 325 mg PO BIDWM 09/30/16 [History] Insulin ASPART [NovoLOG] 7 unit SQ TID 09/30/16 [History] Insulin DETEMIR [Levemir] 15 unit SQ HS 09/30/16 [History] Levothyroxine [Synthroid] 75 mcg PO DAILY 09/30/16 [History] Meclizine HCl [Verticalm] 25 mg PO TID PRN 09/30/16 [History] Simvastatin [Zocor] 40 mg PO HS 09/30/16 [History] Aspirin Enteric Coated [Aspirin EC] 81 mg PO DAILY 12/05/16 [History] Lisinopril/Hydrochlorothiazide [Zestoretic 20-12.5 mg Tablet] 1 tab PO DAILY [History] Amlodipine [Norvasc] 5 mg PO DAILY #30 tablet 12/12/16 [Rx] Labetalol [Trandate] 100 mg PO BID #60 tablet 12/12/16 [Rx] Omeprazole [PriLOSEC] 20 mg PO BIDAC #60 cap 12/12/16 [Rx] Acetaminophen [Tylenol] 1,000 mg PO BID PRN 12/27/16 [History] Bisacodyl [Dulcolax] 10 mg RC DAILY PRN 12/27/16 [History] Magnesium Hydroxide [Milk of Magnesia] 30 ml PO DAILY PRN 12/27/16 [History] Prochlorperazine Maleate [Compazine] 10 mg PO Q6HR PRN 12/27/16 [History] Furosemide [Lasix] 20 mg PO BID 6 Days 12/28/16 [Rx] Allergies/Adverse Reactions: Allergies Penicillins Adverse Reaction (Verified 09/30/16 22:03) Palpitations Vasoconstrictors Adverse Reaction (Uncoded 09/30/16 22:03) Confusion - Respiratory Orders Oxygen / L per min (2) Smoking Cessation: Smoking cessation has been advised. For more information, call the [place] [employer] Quit Line at [phone]. - Lab Orders Lab Orders: CBC (weekly (first 01/02/17)), CXR yearly (in 1 week to address resolution of CT findings.), Other (include drug levels w/frequency) (BMP ) - Advance Directives Code Status: Full Code - Mobility Orders Ambulate - Rehabiliation Orders Rehab Potential: Fair Rehab Orders: Evaluation for Physical Therapy, Evaluation for Occupational Therapy - Treatments List/Other: Furosemide 20 mg daily for 3 days. Consider echocardiogram as outpatient. onc follow up as outpatient. - Diet Orders No Added Salt (ABRAHMA) (fluid restriction 1.8 L/day), No Concentrated Sweets, Cardiac CERTIFICATION: I certify that the transfer of the above named patient to an Extended Care Facility is necessary for the continuing treatment of the diagnosis listed. The above information is true and accurate reflection of patient's current condition. Confidential - Redisclosure prohibited without a patient's written consent.
[2016-12-28] MEDS ORDERED: amLODIPine 5 MG TABLET PO ONE (22:35)
== END 2016-12-28 12:00 ==
LOC: EMEROO 09:16 → 3NENU 09:16 → SUATTDRO 12:01 → 3NENU 12:31
PROVIDERS: ADMIT Internal Medicine; ATTEND Internal Medicine

== ENCOUNTER 2016-12-30 23:34 | Inpatient (IN) ==
[2016-12-30] MEDS ORDERED: Ipratropium/Albuterol Neb 3 ML IH ONE (23:50)
[2016-12-30] MEDS ORDERED: methylPREDNISolone 125 MG/2 ML VIAL IVP ONE (23:51)
--- NOTE | 2016-12-30 23:54 | Emergency Department Note ---
Disposition Clinical Impression: Anemia, CKD (chronic kidney disease) stage 3, GFR 30-59 ml/min CHF (congestive heart failure) Qualifiers: Congestive heart failure type: combined Congestive heart failure chronicity: acute Qualified Code(s): I50.41 - Acute combined systolic (congestive) and diastolic (congestive) heart failure Dyspnea Qualifiers: Dyspnea type: unspecified Qualified Code(s): R06.00 - Dyspnea, unspecified Disposition: Admitted As Inpatient Condition: Fair Time of Disposition: 03:25 SOB HPI - General Chief Complaint: ED Shortness of Breath/Dyspnea Stated Complaint: TRISH Time Seen by Provider: 12/30/16 23:48 Source: patient Mode of arrival: private vehicle Limitations: altered mental status Nursing Notes Reviewed: Yes Vital Signs Reviewed: Yes - History of Present Illness Pt Subjective Complaint: shortness of breath Onset (ago): day(s) Context: other (history of similar episodes) Severity: moderate, severe Consistency/Duration: constant, gradually worsening Improves with: nothing Worsens with: nothing Known history of: congestive heart failure Associated symptoms: Reports: denies other symptoms Treatment prior to arrival: none Cough Frequency: Intermittent Sputum production: Yes Sputum Amount: Scant Sputum Color: Clear - Related Data Home Medications Medication Instructions Recorded Confirmed Acetaminophen [Non-Aspirin Extra 1,000 mg PO BID 12/31/16 12/31/16 Strength] Amlodipine Besylate 5 mg PO DAILY 12/31/16 12/31/16 Aspirin 81 mg PO DAILY 12/31/16 12/31/16 Bisacodyl [Dulcolax] 10 mg RC AD PRN 12/31/16 12/31/16 Cetirizine HCl [All Day Allergy] 10 mg PO DAILY PRN 12/31/16 12/31/16 Cyclobenzaprine [Flexeril] 5 mg PO HS PRN 12/31/16 12/31/16 Donepezil HCl [Aricept] 10 mg PO DAILY 12/31/16 12/31/16 Ferrous Sulfate [Iron] 325 mg PO BID 12/31/16 12/31/16 Furosemide [Lasix] 20 mg PO DAILY 12/31/16 12/31/16 Insulin ASPART [NovoLOG] 7 unit SQ TIDWM 12/31/16 12/31/16 Insulin DETEMIR [Levemir Flextouch] 15 unit SQ DAILY 12/31/16 12/31/16 Labetalol HCl 100 mg PO BID 12/31/16 12/31/16 Levothyroxine Sodium [Levoxyl] 75 mcg PO DAILY 12/31/16 12/31/16 Lisinopril-HCTZ 20-12.5 [Prinzide 1 tab PO DAILY 12/31/16 12/31/16 20-12.5] Magnesium Hydroxide [Milk of 30 ml PO DAILY PRN 12/31/16 12/31/16 Magnesia] Meclizine HCl [Verticalm] 25 mg PO TID PRN 12/31/16 12/31/16 Omeprazole 20 mg PO BID 12/31/16 12/31/16 Simvastatin [Zocor] 40 mg PO HS 12/31/16 12/31/16 Previous Rx's Medication Instructions Recorded LORazepam Oral Conc [Ativan Oral 1 mg PO Q6H PRN #30 mls 01/03/17 Conc] Morphine Oral CONC [Roxanol] 5 mg PO Q4HR PRN #30 oral.syg 01/03/17 LORazepam Oral Conc [Ativan Oral 1 mg PO Q6HR PRN #30 mls 01/04/17 Conc] Morphine Oral CONC [Roxanol] 5 mg PO Q4HR PRN #30 oral.syg 01/04/17 Allergies Allergy/AdvReac Type Severity Reaction Status Date / Time Penicillins AdvReac Palpitation Verified 09/30/16 22:03 s Vasoconstrictors AdvReac Confusion Uncoded 09/30/16 22:03 All systems ED: reviewed and negative except as stated. Constitutional: Denies: fever, chills Respiratory: Reports: cough, dyspnea, sputum production Gastrointestinal: Denies: abdominal pain, nausea, vomiting Genitourinary: Denies: dysuria Integumentary: Denies: rash Neurological: Denies: headache Psychiatric: Denies: anxiety, depression, suicidal thoughts, homicidal thoughts Endocrine: Reports: fatigue Past Medical History - Past Medical History Attestation: Yes The following information was validated with the patient. 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 - Social History Smoking Status: Never smoker Smokeless Tobacco Status: No Alcohol use: Reports: none Drug use: Reports: none Physical Exam - General Limitations: altered mental status General appearance: alert - Head Head exam: atraumatic, normocephalic, normal inspection - Eye Eye exam: Present: normal appearance, PERRL - ENT ENT exam: normal exam, normal oropharynx, mucous membranes moist - Neck Neck exam: Present: normal inspection, full ROM, trachea midline - Chest Chest inspection: Present: normal inspection, symmetric chest wall rise - Expanded Respiratory Exam Location: rales: Lower, decreased breath sounds: Left, Right, Upper, Lower - Cardiovascular Cardiovascular exam: Present: regular rate, normal rhythm, normal heart sounds - Abdominal Exam Abdominal exam: Present: soft, Non-Tender - Extremities Exam Extremities exam: Present: normal inspection, full ROM, pedal edema. Absent: tenderness - Back Exam Back exam: Present: normal inspection, full ROM. Absent: tenderness - Neurological Exam Neurological exam: Present: alert, oriented X3 - Psychiatric Psychiatric exam: Present: normal affect, normal mood - Skin Skin exam: Present: warm, dry, intact, normal color Course Vital Signs Temperature 98.5 F 12/30/16 23:36 Pulse Rate 68 12/30/16 23:36 Respiratory Rate 22 12/30/16 23:36 Blood Pressure 143/57 12/30/16 23:36 O2 Sat by Pulse Oximetry 84 L 12/30/16 23:36 Temperature 97.4 F L 01/04/17 12:00 Pulse Rate 67 01/04/17 12:00 Respiratory Rate 18 01/04/17 12:00 Blood Pressure 129/68 01/04/17 12:00 O2 Sat by Pulse Oximetry 96 01/04/17 12:00 Oxygen Delivery Oxygen Delivery Room Air Shortness of Breath/Dyspnea - Lab Data Lab results reviewed: Yes I reviewed the patient's lab results. Result diagrams: 01/04/17 04:33 01/04/17 04:33 Lab Results 12/31/16 12/31/16 12/31/16 Range/Units 00:20 00:20 00:20 WBC (4.3-11.1) K/mcL RBC (3.82-4.97) M/mcL Hgb (11.5-15.4) g/dL Hct (35.3-44.9) % MCV (83.0-100.0) fL MCH (28.0-33.3) pg MCHC (31.6-35.5) g/dL RDW (11.5-14.5) % Plt Count (140-400) K/mcL MPV (9.4-12.4) fL Immature Gran % (0-4) % Seg Neutrophils % % Lymphocytes % % Monocytes % % Eosinophils % % Basophils % % Neutrophils # (1.6-8.9) K/mcL Lymphocytes # (0.6-4.6) K/mcL Monocytes # (0.0-1.3) K/mcL Eosinophils # (0.0-0.6) K/mcL Basophils # (0.0-0.2) K/mcL Nucleated RBCs/100 WBC (0) /100 WBC Platelet Estimate (Normal) Immature Plt Fraction (1.1-6.1) % Anisocytosis (Not Present) Macrocytosis (Not Present) PT 12.9 H (9.4-12.1) Seconds INR 1.2 APTT 33.9 (26.0-36.0) Seconds Sodium 131 L (136-145) mEq/L Potassium 3.6 (3.5-4.5) mEq/L Chloride 97 L (98-109) mEq/L Carbon Dioxide 26 (19-29) mEq/L BUN 38 H (7-20) mg/dL Creatinine 1.93 H (0.57-1.11) mg/dL Est GFR ( Amer) 30 L (> 60) Est GFR (Non-Af Amer) 25 L (> 60) BUN/Creatinine Ratio 20 (6-26) Glucose 182 H (70-99) mg/dL Calculated Osmolality 286 (280-300) Calcium 8.5 L (8.6-10.8) mg/dL Troponin I 0.04 H* (0-0.03) ng/mL B-Natriuretic Peptide (0-100) pg/mL Specimen Rejected Blood Type Antibody Screen Crossmatch 12/31/16 12/31/16 12/31/16 Range/Units 00:20 00:20 01:24 WBC 9.5 (4.3-11.1) K/mcL RBC 2.24 L (3.82-4.97) M/mcL Hgb 6.8 L D (11.5-15.4) g/dL Hct 20.9 L (35.3-44.9) % MCV 93.3 D (83.0-100.0) fL MCH 30.4 (28.0-33.3) pg MCHC 32.5 (31.6-35.5) g/dL RDW 19.3 H (11.5-14.5) % Plt Count 60 L D (140-400) K/mcL MPV 13.1 H (9.4-12.4) fL Immature Gran % 1.3 (0-4) % Seg Neutrophils % 33.3 % Lymphocytes % 14.0 % Monocytes % 51.3 % Eosinophils % 0.0 % Basophils % 0.1 % Neutrophils # 3.2 (1.6-8.9) K/mcL Lymphocytes # 1.3 (0.6-4.6) K/mcL Monocytes # 4.9 H (0.0-1.3) K/mcL Eosinophils # 0.0 (0.0-0.6) K/mcL Basophils # 0.0 (0.0-0.2) K/mcL Nucleated RBCs/100 WBC 0.4 H (0) /100 WBC Platelet Estimate Decreased L (Normal) Immature Plt Fraction 11.6 H (1.1-6.1) % Anisocytosis 3+ A (Not Present) Macrocytosis Present A (Not Present) PT (9.4-12.1) Seconds INR APTT (26.0-36.0) Seconds Sodium (136-145) mEq/L Potassium (3.5-4.5) mEq/L Chloride (98-109) mEq/L Carbon Dioxide (19-29) mEq/L BUN (7-20) mg/dL Creatinine (0.57-1.11) mg/dL Est GFR ( Amer) (> 60) Est GFR (Non-Af Amer) (> 60) BUN/Creatinine Ratio (6-26) Glucose (70-99) mg/dL Calculated Osmolality (280-300) Calcium (8.6-10.8) mg/dL Troponin I (0-0.03) ng/mL B-Natriuretic Peptide 158 H (0-100) pg/mL Specimen Rejected MCV Delta Blood Type Antibody Screen Crossmatch 12/31/16 12/31/16 Range/Units 04:49 06:53 WBC (4.3-11.1) K/mcL RBC (3.82-4.97) M/mcL Hgb (11.5-15.4) g/dL Hct (35.3-44.9) % MCV (83.0-100.0) fL MCH (28.0-33.3) pg MCHC (31.6-35.5) g/dL RDW (11.5-14.5) % Plt Count (140-400) K/mcL MPV (9.4-12.4) fL Immature Gran % (0-4) % Seg Neutrophils % % Lymphocytes % % Monocytes % % Eosinophils % % Basophils % % Neutrophils # (1.6-8.9) K/mcL Lymphocytes # (0.6-4.6) K/mcL Monocytes # (0.0-1.3) K/mcL Eosinophils # (0.0-0.6) K/mcL Basophils # (0.0-0.2) K/mcL Nucleated RBCs/100 WBC (0) /100 WBC Platelet Estimate (Normal) Immature Plt Fraction (1.1-6.1) % Anisocytosis (Not Present) Macrocytosis (Not Present) PT (9.4-12.1) Seconds INR APTT (26.0-36.0) Seconds Sodium (136-145) mEq/L Potassium (3.5-4.5) mEq/L Chloride (98-109) mEq/L Carbon Dioxide (19-29) mEq/L BUN (7-20) mg/dL Creatinine (0.57-1.11) mg/dL Est GFR ( Amer) (> 60) Est GFR (Non-Af Amer) (> 60) BUN/Creatinine Ratio (6-26) Glucose (70-99) mg/dL Calculated Osmolality (280-300) Calcium (8.6-10.8) mg/dL Troponin I (0-0.03) ng/mL B-Natriuretic Peptide (0-100) pg/mL Specimen Rejected Volume Blood Type O NEGATIVE Antibody Screen NEGATIVE Crossmatch See Detail - Radiology Data Radiology results reviewed: Yes I reviewed the patient's radiology results. Attestation Statement - Attestation Attestation: I personally interviewed and examined this patient, interviewed family members and my medical decision-making was reviewed with the BECKA, Duglas Martinez. I agree with the documented findings, disposition and treatment plan as described in the documentation. The high probability of a clinically significant, sudden or life threatening deterioration of the [respiratory] system(s) required my full and direct attention, intervention and personal management. The aggregate critical care time was [30] minutes. This time is in addition to time spent performing reported procedures but includes the following: [X] Data Review and interpretation [X] Patient assessment and monitoring of vital signs [X] Documentation [X] Medication orders and management Patient is an 86-year-old white female with a history of dementia, CHF, recurrent anemia requiring blood transfusions with a history of CML. Patient's last transfusion was 4 days ago, and patient's brought in today for hypoxia and difficulty breathing. His room air sats on arrival were 84%, she was placed on 4 L nasal cannula and is now satting at 96-97% with decreased work of breathing. Patient's EKG was unremarkable for any acute ST-T wave changes. Lab evaluation was sent and chest x-ray obtained. His clinical picture seems very similar to patient's recent hospitalization diagnoses. By chest x-ray and lab work patient does have some mild changes suggestive of CHF but much improved from her hospitalization 4 days ago. Patient does have a recurrent anemia at 6.8 today and most likely will require blood transfusion again. A new finding today is her thrombocytopenia with platelets in the 60s. He should has an elevated troponin of 0.04 along with worsening acute on chronic renal insufficiency. Patient at this time and on arrival was denying any form of chest pain or discomfort no heaviness. Did discuss results with family or at bedside but patient's power of deputy prosecuting attorney for healthcare lives out of town and is only reachable by phone. According to family he is the only one to make medical decisions on her behalf secondary to her dementia. Patient is awake alert and oriented 3 here in the ED but also agrees that he makes medical decisions on her behalf. We will make an attempt to contact him to consent for blood transfusion that can be initiated in the ED. Discussed case with the hospitalist and patient will be readmitted today to address all of her chronic recurrent issues secondary to her CML.
[2016-12-31 01:05] LABS: INR 1.2; Prothrombin Time 12.9 Seconds (9.4-12.1)
[2016-12-31 01:08] LABS: Activated Partial Thrombo Time 33.9 Seconds (26.0-36.0)
[2016-12-31 01:12] LABS: Calcium 8.5 mg/dL (8.6-10.8); Potassium 3.6 mEq/L (3.5-4.5)
[2016-12-31 01:33] LABS: Basophils % 0.1 %; Hematocrit 20.9 % (35.3-44.9); Hemoglobin 6.8 g/dL (11.5-15.4); Immature Granulocytes % 1.3 % (0-4); Immature Platelets 11.6 % (1.1-6.1); Lymphocytes # 1.3 K/mcL (0.6-4.6); Mean Corpuscular HGB Conc 32.5 g/dL (31.6-35.5); Mean Corpuscular Hemoglobin 30.4 pg (28.0-33.3); Mean Corpuscular Volume 93.3 fL (83.0-100.0); Mean Platelet Volume 13.1 fL (9.4-12.4); Monocytes # 4.9 K/mcL (0.0-1.3); Monocytes % 51.3 %; Neutrophils # 3.2 K/mcL (1.6-8.9); Nucleated Red Blood Cells 0.4 /100 WBC (0); Red Blood Count 2.24 M/mcL (3.82-4.97); Red Cell Distribution Width 19.3 % (11.5-14.5); Segmented Neutrophils % 33.3 %
[2016-12-31 01:34] LABS: Platelet Count 60 K/mcL (140-400)
[2016-12-31 01:55] LABS: Platelet Estimate Decreased (Normal)
[2016-12-31 01:56] LABS: Anisocytosis 3+ (Not Present); Macrocytosis Present (Not Present)
[2016-12-31] MEDS ORDERED: Ondansetron 4 MG/2 ML VIAL IVP PRN (07:53)
[2016-12-31] MEDS ORDERED: Dextrose Gel 15 GM PO PRN ×2 (07:58)
[2016-12-31] MEDS ORDERED: D5% in Water 1,000 ML IV PRN (07:58)
[2016-12-31] MEDS ORDERED: *HR* Dextrose 50 % in Water (Syg) 50 ML SYRINGE IVP PRN (07:58)
[2016-12-31] MEDS ORDERED: Loratadine 10 MG TABLET PO PRN (07:59)
[2016-12-31] MEDS ORDERED: Furosemide 40 MG/4 ML VIAL IVP ONE (08:47)
[2016-12-31] MEDS ORDERED: 0.9 % Sodium Chloride 250 ML ONE (08:49)
[2016-12-31] MEDS: Insulin LISPRO 300 UNITS/3 ML VIAL SQ SCH ×5 (08:53→17:04)
[2016-12-31] MEDS: Aspirin 81 MG TAB.CHEW PO SCH (08:54)
[2016-12-31] MEDS: Insulin DETEMIR 100 UNIT/ML X5UNITS SQ SCH (08:54)
--- NOTE | 2016-12-31 08:54 | Internal Med History&Physical ---
Date of Encounter: 12/31/16 Time of Encounter: 08:52 Assessment and Plan (1) Severe anemia Current visit: No Status: Acute Transfused 2 units PRBC. We will give Lasix pre-transfusion. Based on her prior records review she has a history of fluid overload secondary to transfusion. (2) Goals of care, counseling/discussion Current visit: Yes Status: Acute At this point the patient is awake alert oriented 3, she has basic understanding of her medical conditions. She opted for DNR DNI which he verbally communicated to me today. My assessment is that she has decision- making capacity and therefore will enter DNR CCA DNI as an order. (3) CKD stage 4 secondary to hypertension Current visit: No Status: Chronic Continue outpatient oral antihypertensive medication regimen. (4) Hypertension Current visit: No Status: Chronic Continue with Norvasc and labetalol and lisinopril. Qualifiers: Hypertension type: essential hypertension Qualified Code(s): I10 - Essential (primary) hypertension (5) Type 2 diabetes mellitus Current visit: No Status: Chronic Insulin sliding scale. Qualifiers: Diabetes mellitus complication status: with kidney complications Diabetes mellitus complication detail: with chronic kidney disease Diabetes mellitus shelter insulin use: with shelter use Chronic kidney disease stage: stage 4 (severe) Qualified Code(s): E11.22 - Type 2 diabetes mellitus with diabetic chronic kidney disease; N18.4 - Chronic kidney disease, stage 4 (severe); Z79.4 - retirement (current) use of insulin (6) Pedal edema Current visit: No Status: Chronic Continue with Lasix. (7) Hypoxia Current visit: No Status: Acute Supplemental oxygen by nasal cannula. 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 We will consult oncology for further recommendations. Consult palliative care service. The patient is at high risk for morbidity and mortality and complications due to de-escalation calls of care patient was made DNR CCA DNI today. 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 Booth is a 86 year old female with past medical history significant for CML and MDS requiring blood transfusions was brought to the hospital from rehabilitation for evaluation hypoxemia and shortness of breath. She reports that she had lower extremity swelling for last 2 days that usually improves with getting up and ambulating. She was also noted to have a drop in her hemoglobin after she had recently received a blood transfusion. 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 Past medical history significant for MDS, type 2 diabetes and anemia Surgical history appendectomy. Family history patient's daughter of leukemia Social history she denies tobacco alcohol or drug use Review of systems positive for skin bruising and memory loss otherwise a 10 point review of systems was negative except for mild limitation secondary to dementia. Past Med Surg Social Fam HX - Past Medical History Medical history: atrial fibrillation, dementia, diabetes, GERD, hyperlipidemia, hypertension, renal disease, thyroid disease Psychiatric history: depression - Past Surgical History Surgical History: appendectomy - Social History Smoking Status: Never smoker Smokeless Tobacco Status: No Alcohol use: none Drug use: none - Family History Mother Living Status: Hx Family Cardiac Disorders: Yes ([place]) Internal Medicine - H&P: Meds Acetaminophen [Non-Aspirin Extra Strength] 1,000 mg PO BID 12/31/16 [History] Amlodipine Besylate 5 mg PO DAILY 12/31/16 [History] Aspirin 81 mg PO DAILY 12/31/16 [History] Bisacodyl [Dulcolax] 10 mg RC AD PRN 12/31/16 [History] Cetirizine HCl [All Day Allergy] 10 mg PO DAILY PRN 12/31/16 [History] Cyclobenzaprine [Flexeril] 5 mg PO HS PRN 12/31/16 [History] Donepezil HCl [Aricept] 10 mg PO DAILY 12/31/16 [History] Ferrous Sulfate [Iron] 325 mg PO BID 12/31/16 [History] Furosemide [Lasix] 20 mg PO DAILY 12/31/16 [History] Insulin ASPART [NovoLOG] 7 unit SQ TIDWM 12/31/16 [History] Insulin DETEMIR [Levemir Flextouch] 15 unit SQ DAILY 12/31/16 [History] Labetalol HCl 100 mg PO BID 12/31/16 [History] Levothyroxine Sodium [Levoxyl] 75 mcg PO DAILY 12/31/16 [History] Lisinopril-HCTZ 20-12.5 [Prinzide 20-12.5] 1 tab PO DAILY 12/31/16 [History] Magnesium Hydroxide [Milk of Magnesia] 30 ml PO DAILY PRN 12/31/16 [History] Meclizine HCl [Verticalm] 25 mg PO TID PRN 12/31/16 [History] Omeprazole 20 mg PO BID 12/31/16 [History] Simvastatin [Zocor] 40 mg PO HS 12/31/16 [History] Allergies Penicillins Adverse Reaction (Verified 09/30/16 22:03) Palpitations Vasoconstrictors Adverse Reaction (Uncoded 09/30/16 22:03) Confusion All Systems PM: A 10-system review of systems was performed and is negative for pertinent findings except as documented above in the HPI. - Constitutional Vitals: Temp Pulse Resp BP Pulse Ox 97.6 F 67 18 152/71 98 12/31/16 08:36 12/31/16 08:36 12/31/16 08:36 12/31/16 08:36 12/31/16 08:36 - Eye Eye exam: Present: PERRL, conjuntiva pink, sclera anicteric Pupils: Present: PERRL - Neck Neck exam general surgery: Present: supple, trachea midline. Absent: lymphadenopathy - Respiratory Respiratory exam: Present: rales. Absent: accessory muscle use, rhonchi, wheezes - Cardiovascular Cardiovascular exam: Present: RRR, +S1, +S2, systolic murmur (3/6 systolic ejection murmur best heard at the right upper sternal border). Absent: diastolic murmur, gallop, rubs Additional comments: Left lung base crackles - GI/Abdominal GI/Abdominal exam: Present: normal bowel sounds, soft, no peritoneal signs. Absent: distended, tenderness - Extremities Exam Extremities exam: Present: pedal edema (2+ LE pitting edema bilaterally), warm, radial pulses palpable and symetrical. Absent: calf tenderness, cyanotic - Neurological Exam Neurological exam: Present: CN II-XII intact, oriented X3, no focal deficits. Absent: facial droop, speech deficit - Skin Skin exam: Present: dry, intact Internal Med - H&P Results - Labs CBC & Chem 7: 12/31/16 01:24 12/31/16 00:20 - EKG Data -: EKG Interpreted by Myself (Normal sinus rhythm 62 bpm, normal ST and T waves. ) EKG shows normal: axis, intervals, ST-T waves
[2016-12-31] MEDS: amLODIPine 5 MG TABLET PO SCH (08:55)
[2016-12-31] MEDS: Lisinopril-HCTZ 20-12.5mg TABLET PO SCH (08:57)
[2016-12-31] MEDS: Acetaminophen 325 MG TABLET PO PRN (10:17)
--- NOTE | 2016-12-31 11:25 | Palliative - Consult Note ---
Date of Encounter: 12/31/16 Time of Encounter: 11:20 - Assessment and Plan (1) Dyspnea Current Visit: Yes Status: Acute Assessment and plan: Improved with blood transfusion. On supportive oxygen. Monitor. Qualifiers: Dyspnea type: unspecified Qualified Code(s): R06.00 - Dyspnea, unspecified (2) Goals of care, counseling/discussion Current Visit: Yes Status: Acute Assessment and plan: Patient had conversation with hospitalist last pm and code status was changed. This am, she is alert and oriented x3 and able to express her wishes, she does again state she does not desire any CPR/defib for cardiac arrest and does not desire to be on ventilator. Awaiting oncology input and will further discuss goals of care. She already has safe discharge plan back to [facility], where she is under a skilled level of care. Her son, Rosalio Booth is her designated power of tree doctor and this is found in patient's record. I will be in touch with him after oncology sees. (3) Severe anemia Current Visit: No Status: Acute Palliative-CN HPI - Data of Consult Requesting Physician: Anila Valera MD Primary Care Provider: Franklin Corral MD - Consult Narrative History of present illness: Ms. Booth is a 86 year old female who has history of anemia and treated with transfusions at the [facility], who was admitted with increased shortness of breath. She had blood transfusion on admission with hemoglobin of 5.7, this improved to 9.7 yesterday, and again decreased to 6.8 today. She is currently receiving another transfusion. During my visit, she is on side of bed and I assisted her in chair. She states she lives at [facility], but not sure how long she has been there. States she has one son, Rosalio, that resides in [place] , and she had a daughter who is . She is currently c/o upper back pain from being in bed, and generalized weakness. Still with some shortness of breath, but states transfusions usually helpful with this. Oncology consult is pending - patient had bone marrow biopsy the beginning of the month with results of Myelodysplastic syndrome. It does not appear she has had an oncology visit since biopsy results were resulted. CC: Anila Valera MD Past Med Surg Social Fam HX - Past Medical History Medical history: atrial fibrillation, dementia, diabetes, GERD, hyperlipidemia, hypertension, renal disease, thyroid disease Psychiatric history: depression - Past Surgical History Surgical History: appendectomy - Social History Smoking Status: Never smoker Smokeless Tobacco Status: No Alcohol use: none Drug use: none - Family History Mother Living Status: Hx Family Cardiac Disorders: Yes ([place]) Medications and Allergies Acetaminophen [Non-Aspirin Extra Strength] 1,000 mg PO BID 12/31/16 [History] Amlodipine Besylate 5 mg PO DAILY 12/31/16 [History] Aspirin 81 mg PO DAILY 12/31/16 [History] Bisacodyl [Dulcolax] 10 mg RC AD PRN 12/31/16 [History] Cetirizine HCl [All Day Allergy] 10 mg PO DAILY PRN 12/31/16 [History] Cyclobenzaprine [Flexeril] 5 mg PO HS PRN 12/31/16 [History] Donepezil HCl [Aricept] 10 mg PO DAILY 12/31/16 [History] Ferrous Sulfate [Iron] 325 mg PO BID 12/31/16 [History] Furosemide [Lasix] 20 mg PO DAILY 12/31/16 [History] Insulin ASPART [NovoLOG] 7 unit SQ TIDWM 12/31/16 [History] Insulin DETEMIR [Levemir Flextouch] 15 unit SQ DAILY 12/31/16 [History] Labetalol HCl 100 mg PO BID 12/31/16 [History] Levothyroxine Sodium [Levoxyl] 75 mcg PO DAILY 12/31/16 [History] Lisinopril-HCTZ 20-12.5 [Prinzide 20-12.5] 1 tab PO DAILY 12/31/16 [History] Magnesium Hydroxide [Milk of Magnesia] 30 ml PO DAILY PRN 12/31/16 [History] Meclizine HCl [Verticalm] 25 mg PO TID PRN 12/31/16 [History] Omeprazole 20 mg PO BID 12/31/16 [History] Simvastatin [Zocor] 40 mg PO HS 12/31/16 [History] Allergies Penicillins Adverse Reaction (Verified 09/30/16 22:03) Palpitations Vasoconstrictors Adverse Reaction (Uncoded 09/30/16 22:03) Confusion ROS unobtainable: due to mental status All systems: reviewed and no additional remarkable complaints except as stated ( generalized weakness, shortness of breath, back pain) Palliative Care-Exam - Constitutional Vitals: Temp Pulse Resp BP Pulse Ox 98.4 F 62 16 132/69 98 12/31/16 09:25 12/31/16 09:25 12/31/16 09:25 12/31/16 09:25 12/31/16 10:51 General appearance: Present: no acute distress - Head Head Exam: Present: normal inspection, normocephalic - Eye Eye exam: Present: normal appearance, PERRL - Respiratory Respiratory exam: Present: decreased breath sounds, CTAB - Cardiovascular Cardiovascular exam: Present: +S1, +S2 - GI/Abdominal Exam GI/Abdominal exam: Present: normal bowel sounds, soft - Extremities Exam Extremities exam: Present: normal capillary refill, normal inspection Additional comments: 2-3+ bilateral extremity edema - Neurological Exam Neurological exam: Present: alert, oriented X3, strengths equal and symetr throughout - Psychiatric Psychiatric exam: Present: flat affect - Skin Skin exam: Present: dry, pallor, warm Internal Medicine - CN: Reslt - Labs CBC & Chem 7: 12/31/16 01:24 12/31/16 00:20 - ABG Interpretation ABG results: PT/INR, D-dimer PT 12.9 Seconds (9.4-12.1) H 12/31/16 00:20 Consult Discharge Plan - Plan Referrals: Franklin Corral MD [Primary Care Provider] - Palliative Quality Palliative Quality: Screen for Code Status: Yes, Screen for Goals of Care: Yes, Screen for Pain: Yes, If Pain Regimen Started, Initiate Bowel Regimen: Yes, Screen for Nausea/Vomitting: Yes Code Status: 12/31/16 08:51 DNR [Resuscitation Status: Active] [RES] Routine Comment: d/w patient AAOx3 Resuscitation Status: [id number]
--- NOTE | 2016-12-31 16:08 | Electrocardiograph Report ---
[place] [id number] Test Date: 2016-12-30 Pat Name: Morteza Booth Department: 105 Room: 3A Gender: F Control Technician: [facility] : [id number] Requested By: Kimo Martinez Order Number: [id number] Reading MD: Lilia Swenson Measurements Intervals [place] Rate: 72 P: 17 MI: 183 QRS: -29 QRSD: 105 T: 31 QT: 418 QTc: 442 Interpretive Statements SINUS RHYTHM WITH OCCASIONAL SUPRAVENTRICULAR PREMATURE COMPLEXES BORDERLINE LEFT AXIS DEVIATION [QRS AXIS < -20] Electronically Signed On 12-31-2016 16:07:07 EDT by iLlia Swenson
--- NOTE | 2016-12-31 16:40 | Oncology Inp Consult Note ---
<Anastasia Rodríguez E - Last Filed: 12/31/16 16:37> Date of Encounter: 12/31/16 Time of Encounter: 16:37 - Data of Consult Patient: known to practice within the last 3 years Consult date: 12/31/16 Requesting Physician: Anila Valera MD Primary Care Provider: Franklin Corral MD - Consult Narrative Reason for consult: Anemia History of present illness: Ms. Booth is a 86 year old female with a medical history significant for hypertension, diabetes, renal insufficiency and recurrent anemia requiring transfusions with history of CML. Was recently admitted to [facility] through the emergency department secondary to hypoxia and difficulty breathing. Her hemoglobin at that time was 6.8. Chest x-ray indicated mild changes suggestive of congestive heart failure. She was also found to be thrombus cytopenia With platelets being 60,000. She has known to our clinic I will summarize her hematologic history as per last visit not. Hemoglobin in July 2014 with 12.5 subsequently declined to 7.1 in August 2016. On 10/30/2016 was 7.6. She received transfusion support. In 2015 she had a colonoscopy with poor preparation no other findings were reported. Upper endoscopy indicated an LA grade a reflux esophagitis. Dr. Mcintosh had planned to repeat the colonoscopy and EGD for the patient refused the procedure. Her POA also refused these exams. He completed a bone marrow biopsy that indicated CMML, monocytosis, monoblasts, probably sites and dysplastic granulocytes consistent with MDS. CD4 positive blasts were up to 10-20%. Aggressive MDS with risk of progression to leukemia. The patient was scheduled to be seen by on 01/01/2017 as out patient. She had suggested considering weekly labs with supportive transfusions in the outpatient clinic. She also indicated to be consideration of hypomethylating agents and DAVID's. Patient will be re evaluated by Dr Orosco. Past Med Surg Social Fam HX - Past Medical History Medical history: atrial fibrillation, dementia, diabetes, GERD, hyperlipidemia, hypertension, renal disease, thyroid disease, other (anemia, thrombocytopenia) Psychiatric history: depression - Past Surgical History Surgical History: appendectomy - Social History Smoking Status: Never smoker Smokeless Tobacco Status: No Alcohol use: none Drug use: none - Family History Mother Living Status: Hx Family Cardiac Disorders: Yes ([place]) Medications and Allergies Acetaminophen [Non-Aspirin Extra Strength] 1,000 mg PO BID 12/31/16 [History] Amlodipine Besylate 5 mg PO DAILY 12/31/16 [History] Aspirin 81 mg PO DAILY 12/31/16 [History] Bisacodyl [Dulcolax] 10 mg RC AD PRN 12/31/16 [History] Cetirizine HCl [All Day Allergy] 10 mg PO DAILY PRN 12/31/16 [History] Cyclobenzaprine [Flexeril] 5 mg PO HS PRN 12/31/16 [History] Donepezil HCl [Aricept] 10 mg PO DAILY 12/31/16 [History] Ferrous Sulfate [Iron] 325 mg PO BID 12/31/16 [History] Furosemide [Lasix] 20 mg PO DAILY 12/31/16 [History] Insulin ASPART [NovoLOG] 7 unit SQ TIDWM 12/31/16 [History] Insulin DETEMIR [Levemir Flextouch] 15 unit SQ DAILY 12/31/16 [History] Labetalol HCl 100 mg PO BID 12/31/16 [History] Levothyroxine Sodium [Levoxyl] 75 mcg PO DAILY 12/31/16 [History] Lisinopril-HCTZ 20-12.5 [Prinzide 20-12.5] 1 tab PO DAILY 12/31/16 [History] Magnesium Hydroxide [Milk of Magnesia] 30 ml PO DAILY PRN 12/31/16 [History] Meclizine HCl [Verticalm] 25 mg PO TID PRN 12/31/16 [History] Omeprazole 20 mg PO BID 12/31/16 [History] Simvastatin [Zocor] 40 mg PO HS 12/31/16 [History] Allergies Penicillins Adverse Reaction (Verified 09/30/16 22:03) Palpitations Vasoconstrictors Adverse Reaction (Uncoded 09/30/16 22:03) Confusion Oncology - Exam - Constitutional Vitals: Temp Pulse Resp BP Pulse Ox 97.6 F 76 16 135/64 98 12/31/16 15:05 12/31/16 15:05 12/31/16 15:05 12/31/16 15:05 12/31/16 15:25 Consult Discharge Plan - Plan Referrals: Franklin Corral MD [Primary Care Provider] - 01/09/17 2:15 pm <Marnie Orosco - Last Filed: 01/01/17 08:49> Date of Encounter: 12/31/16 - Data of Consult Requesting Physician: Anila Valera MD Primary Care Provider: Franklin Corral MD - Consult Narrative History of present illness: Ms. Booth is a 86 year old female re-evalued today at bedside. She is sent from [facility] with Hgb dropping around 6gm, s/p PRBC. She is demented, reports she i sfalling apart. SOB on O2. Sitting comfortably in the chair and has an appetite, eating well Denies any other specific complaints. O/E Pallor+ Chest Clear ekta air entry, on O2 NC Abd Soft and NT No HSM Ext ekta swelling, pitting edema -I have reviewed here bone marro wfindings in detail with her HCP/son/Rosalio at [phone]. Due to her age-not a cnadidate for aggressive therapy for high risk MDS possibly evolving into leukemia (10-20% blasts in BM bx) She has dementia, poor understanding of her disease process, I have reviewed difficulty with hypomethylating agents and supportive treatment it would involve and side effects with family. Hospice at [facility] was brought up during discussion. Son will discuss with rest of family members. Will continue supportive transfusions until then. She will need appt in infusion clinic twice- three times wkly for labs and transfusion support which need to be scheduled prior to her discharge. Oncology - Exam - Constitutional Vitals: Temp Pulse Resp BP Pulse Ox 97.5 F L 55 18 153/77 98 12/31/16 16:48 12/31/16 16:48 12/31/16 16:48 12/31/16 16:48 12/31/16 16:48
[2017-01-01] MEDS ORDERED: Furosemide 20 MG/2 ML VIAL IVP ONE (03:06)
[2017-01-01 07:37] LABS: Hematocrit 30.4 % (35.3-44.9); Hemoglobin 10.4 g/dL (11.5-15.4); Immature Platelets 11.9 % (1.1-6.1); Mean Corpuscular HGB Conc 34.2 g/dL (31.6-35.5); Mean Corpuscular Hemoglobin 30.2 pg (28.0-33.3); Mean Corpuscular Volume 88.4 fL (83.0-100.0); Mean Platelet Volume 13.2 fL (9.4-12.4); Nucleated Red Blood Cells 0.5 /100 WBC (0); Red Blood Count 3.44 M/mcL (3.82-4.97); Red Cell Distribution Width 19.7 % (11.5-14.5)
[2017-01-01 07:41] LABS: Calcium 8.7 mg/dL (8.6-10.8); Potassium 3.2 mEq/L (3.5-4.5)
[2017-01-01 07:50] LABS: Platelet Count 68 K/mcL (140-400)
[2017-01-01] MEDS: Insulin LISPRO 300 UNITS/3 ML VIAL SQ SCH ×6 (08:11→16:25)
[2017-01-01 08:13] LABS: Lymphocytes # 0.6 K/mcL (0.6-4.6); Monocytes # 1.3 K/mcL (0.0-1.3); Neutrophils # 10.1 K/mcL (1.6-8.9); Platelet Estimate Decreased (Normal)
[2017-01-01] MEDS: Insulin DETEMIR 100 UNIT/ML X5UNITS SQ SCH (08:14)
[2017-01-01] MEDS: Aspirin 81 MG TAB.CHEW PO SCH (08:15)
[2017-01-01] MEDS: Furosemide 20 MG TABLET PO SCH ×2 (08:15→16:26)
[2017-01-01] MEDS: amLODIPine 5 MG TABLET PO SCH (08:16)
[2017-01-01] MEDS: Lisinopril-HCTZ 20-12.5mg TABLET PO SCH (08:16)
[2017-01-01] MEDS ORDERED: Furosemide 40 MG/4 ML VIAL IVP ONE (08:26)
[2017-01-01] MEDS ORDERED: Prochlorperazine 10 MG/2 ML VIAL IVP PRN (08:26)
[2017-01-01] MEDS: Azithromycin 500 MG in D5% in Water 250 ML IVPB SCH (09:20)
[2017-01-01] MEDS ORDERED: *HR* Promethazine 25 MG/ML VIAL IVP PRN ×2 (10:08→12:26)
[2017-01-01] MEDS ORDERED: Ondansetron 4 MG/2 ML VIAL IVP PRN (12:00)
--- NOTE | 2017-01-01 12:36 | Palliative Progress Note ---
Date of Encounter: 01/01/17 Time of Encounter: 09:30 - Assessment and plan (1) Nausea Current Visit: Yes Status: Acute Assessment and plan: Has received Zofran/Compazine this am without relief. Will trial dose of Promethazine and watch for adverse effects. (2) Dyspnea Current Visit: Yes Status: Acute Assessment and plan: Improved with Lasix, has began IV antibiotics for possible pneumonia. Supportive oxygen Qualifiers: Dyspnea type: unspecified Qualified Code(s): R06.00 - Dyspnea, unspecified (3) Goals of care, counseling/discussion Current Visit: Yes Status: Acute Assessment and plan: Patient has difficulty recalling any information. Remembers visit from oncology yesterday but cannot recall any information that was shared. I spoke with son Rosalio Booth, who resides in [place], and he did have phone conversation with oncologist yesterday pm. He is flying in evening and will be here at hospital for meeting Friday at 1000am. At this point, after discussing with pt's surviving sisters, he is leaning toward taking her back to [facility] with hospice care. I informed him of current clinical status. He wants to continue current level of care until he arrives. Stated he would agree to another blood transfusion if needed until he can arrive and arrangements made. Informed him, that it is likely if she goes with hospice care, they may have to private pay for room and board. He is going to call Katey at [facility] to discuss. Will continue to follow. (4) Severe anemia Current Visit: No Status: Acute - Time Spent With Patient Total time spent is greater than 50% in coordination of care (as documented) at patient's floor/unit and/or counseling patient: 25 - 35 minutes - Subjective Interval history: Patient not feeling well, up in chair and nauseated. Became short of breath last night. CXR with edema and possible pneumonia. Has been started on antibiotics and received Lasix. She has received Zofran and Compazine this am without relief. Hbg at 10.4 today after transfusion yesterday. Plt 68. - Constitutional Vitals: Abnormal lab results WBC 12.0 K/mcL (4.3-11.1) H 01/01/17 07:14 RBC 3.44 M/mcL (3.82-4.97) L 01/01/17 07:14 Hgb 10.4 g/dL (11.5-15.4) L D 01/01/17 07:14 Hct 30.4 % (35.3-44.9) L 01/01/17 07:14 RDW 19.7 % (11.5-14.5) H 01/01/17 07:14 Plt Count 68 K/mcL (140-400) L 01/01/17 07:14 MPV 13.2 fL (9.4-12.4) H 01/01/17 07:14 Band Neutrophils % 9.0 % (0-4) H 01/01/17 07:14 Neutrophils # 10.1 K/mcL (1.6-8.9) H 01/01/17 07:14 Nucleated RBCs/100 WBC 0.5 /100 WBC (0) H 01/01/17 07:14 Platelet Estimate Decreased (Normal) L 01/01/17 07:14 Immature Plt Fraction 11.9 % (1.1-6.1) H 01/01/17 07:14 Anisocytosis 3+ (Not Present) A 12/31/16 01:24 Macrocytosis Present (Not Present) A 12/31/16 01:24 PT 12.9 Seconds (9.4-12.1) H 12/31/16 00:20 Sodium 131 mEq/L (136-145) L 01/01/17 07:14 Potassium 3.2 mEq/L (3.5-4.5) L 01/01/17 07:14 Chloride 94 mEq/L (98-109) L 01/01/17 07:14 BUN 52 mg/dL (7-20) H D 01/01/17 07:14 Creatinine 1.87 mg/dL (0.57-1.11) H 01/01/17 07:14 Est GFR ( Amer) 31 (> 60) L 01/01/17 07:14 Est GFR (Non-Af Amer) 25 (> 60) L 01/01/17 07:14 BUN/Creatinine Ratio 28 (6-26) H 01/01/17 07:14 Glucose 159 mg/dL (70-99) H 01/01/17 07:14 POC Glucose 139 (58-89) H 01/01/17 02:22 Troponin I 0.04 ng/mL (0-0.03) H* 12/31/16 00:20 B-Natriuretic Peptide 158 pg/mL (0-100) H 12/31/16 00:20 General appearance: Present: mild distress - Respiratory Additional comments: faint rales bilateral bases posteriorally - Cardiovascular Cardiovascular exam: Present: +S1, +S2 - GI/Abdominal GI/Abdominal exam: Present: normal bowel sounds, soft - Extremities Exam Additional comments: 2-3 + edema bilateral lower extremities - Neurological Exam Neurological exam: Present: alert, strengths equal and symetr throughout ( Oriented to person and place. Answers questions appropriately) - Skin Skin exam: Present: dry, pallor, warm Palliative Quality Palliative Quality: Screen for Code Status: Yes, Screen for Goals of Care: Yes, Screen for Pain: Yes, If Pain Regimen Started, Initiate Bowel Regimen: Yes, Screen for Nausea/Vomitting: Yes Code Status: 12/31/16 08:51 DNR [Resuscitation Status: Active] [RES] Routine Comment: d/w patient AAOx3 Resuscitation Status: [id number] - Labs CBC & Chem 7: 01/01/17 07:14 01/01/17 07:14 Labs: Laboratory Results - last 24 hr 12/31/16 12/31/16 01/01/17 16:52 20:52 02:22 WBC RBC Hgb Hct MCV MCH MCHC RDW Plt Count MPV Seg Neutrophils % Band Neutrophils % Lymphocytes % Monocytes % Neutrophils # Lymphocytes # Monocytes # Nucleated RBCs/100 WBC Platelet Estimate Immature Plt Fraction Sodium Potassium Chloride Carbon Dioxide BUN Creatinine Est GFR ( Amer) Est GFR (Non-Af Amer) BUN/Creatinine Ratio Glucose POC Glucose 320 H 195 H 139 H Calculated Osmolality Calcium 01/01/17 01/01/17 07:14 07:14 WBC 12.0 H RBC 3.44 L Hgb 10.4 L D Hct 30.4 L MCV 88.4 MCH 30.2 MCHC 34.2 RDW 19.7 H Plt Count 68 L MPV 13.2 H Seg Neutrophils % 75.0 Band Neutrophils % 9.0 H Lymphocytes % 5.0 Monocytes % 11.0 Neutrophils # 10.1 H Lymphocytes # 0.6 Monocytes # 1.3 Nucleated RBCs/100 WBC 0.5 H Platelet Estimate Decreased L Immature Plt Fraction 11.9 H Sodium 131 L Potassium 3.2 L Chloride 94 L Carbon Dioxide 26 BUN 52 H D Creatinine 1.87 H Est GFR ( Amer) 31 L Est GFR (Non-Af Amer) 25 L BUN/Creatinine Ratio 28 H Glucose 159 H POC Glucose Calculated Osmolality 289 Calcium 8.7 - Impressions Impressions Chest X-Ray 01/01/17 04:26 IMPRESSION: Pulmonary edema with progressive right upper lobe and left basilar airspace disease. D/ / Kumar Cordova MD / Kumar Cordova MD Interpreting Provider: Kumar Cordova MD - ABG Interpretation ABG results: PT/INR, D-dimer PT 12.9 Seconds (9.4-12.1) H 12/31/16 00:20 Consult Discharge Plan - Plan Referrals: Franklin Corral MD [Primary Care Provider] -
--- NOTE | 2017-01-01 14:30 | Internal Med Progress Note ---
Date of Encounter: 01/01/17 Time of Encounter: 10:00 - Assessment and plan (1) Severe anemia Current Visit: No Status: Acute (2) CKD stage 4 secondary to hypertension Current Visit: No Status: Chronic (3) Hypertension Current Visit: No Status: Chronic Qualifiers: Hypertension type: essential hypertension Qualified Code(s): I10 - Essential (primary) hypertension (4) Right upper lobe pneumonia Current Visit: Yes Status: Acute Assessment and plan: On Rocephin and Zithromax Qualifiers: Pneumonia type: due to unspecified organism Qualified Code(s): J18.1 - Lobar pneumonia, unspecified organism (5) CHF (congestive heart failure) Current Visit: Yes Status: Acute Assessment and plan: With the transfusion, she appears disgruntled and a little bit of heart failure. Given her couple lives of Lasix with some resolution of her shortness of breath. Qualifiers: Congestive heart failure type: combined Congestive heart failure chronicity : acute Qualified Code(s): I50.41 - Acute combined systolic (congestive) and diastolic (congestive) heart failure - Time Spent With Patient 25 - 35 minutes - Subjective Interval history: She complains of feeling a little bit short of breath and having a little bit of nausea this morning. - Constitutional Vitals: Temp Pulse Resp BP Pulse Ox 98.4 F 78 17 116/84 98 01/01/17 11:57 01/01/17 11:57 01/01/17 11:57 01/01/17 11:57 01/01/17 11:57 General appearance: Present: A&O X 2, mild distress, answers questions appropriately - Respiratory Respiratory exam: Present: decreased breath sounds, rales (at both bases), rhonchi - Cardiovascular Cardiovascular exam: Present: RRR Internal Medicine: Result - Labs CBC & Chem 7: 01/01/17 07:14 01/01/17 07:14 Labs: Short CBC 01/01/17 Range/Units 07:14 WBC 12.0 H (4.3-11.1) K/mcL Hgb 10.4 L D (11.5-15.4) g/dL Hct 30.4 L (35.3-44.9) % Plt Count 68 L (140-400) K/mcL Neutrophils # 10.1 H (1.6-8.9) K/mcL BMP 01/01/17 07:14 Sodium 131 L Potassium 3.2 L Chloride 94 L Carbon Dioxide 26 BUN 52 H D Creatinine 1.87 H Glucose 159 H Calcium 8.7 - ABG Interpretation ABG results: PT/INR, D-dimer PT 12.9 Seconds (9.4-12.1) H 12/31/16 00:20 - Impressions Impressions Chest X-Ray 01/01/17 04:26 IMPRESSION: Pulmonary edema with progressive right upper lobe and left basilar airspace disease. D/ / Kumar Cordova MD / Kumar Cordova MD Interpreting Provider: Kumar Cordova MD Consult Discharge Plan - Plan Referrals: Franklin Corral MD [Primary Care Provider] -
[2017-01-01] MEDS: Albuterol 2.5 MG/3 ML NEBULIZER IH PRN (17:45)
[2017-01-02] MEDS: Acetaminophen 325 MG TABLET PO PRN (04:32)
[2017-01-02] MEDS: Albuterol 2.5 MG/3 ML NEBULIZER IH PRN ×4 (04:42→23:43)
[2017-01-02 05:47] LABS: Nucleated Red Blood Cells 0.2 /100 WBC (0)
[2017-01-02 05:49] LABS: Hematocrit 29.7 % (35.3-44.9); Hemoglobin 10.1 g/dL (11.5-15.4); Immature Platelets 13.7 % (1.1-6.1); Mean Corpuscular Hemoglobin 30.2 pg (28.0-33.3); Mean Corpuscular Volume 88.9 fL (83.0-100.0); Mean Platelet Volume 12.8 fL (9.4-12.4); Red Blood Count 3.34 M/mcL (3.82-4.97); Red Cell Distribution Width 19.2 % (11.5-14.5)
[2017-01-02 05:54] LABS: Platelet Count 62 K/mcL (140-400)
[2017-01-02 06:02] LABS: Potassium 3.1 mEq/L (3.5-4.5)
[2017-01-02 06:21] LABS: Lymphocytes # 4.1 K/mcL (0.6-4.6); Monocytes # 2.8 K/mcL (0.0-1.3); Neutrophils # 6.9 K/mcL (1.6-8.9)
[2017-01-02 06:40] LABS: Anisocytosis 1+ (Not Present); Platelet Estimate Decreased (Normal)
[2017-01-02] MEDS: Insulin LISPRO 300 UNITS/3 ML VIAL SQ SCH ×6 (08:13→15:58)
[2017-01-02] MEDS: Furosemide 20 MG TABLET PO SCH ×3 (09:23→16:06)
--- NOTE | 2017-01-02 09:29 | Palliative Progress Note ---
Date of Encounter: 01/02/17 Time of Encounter: 09:30 - Assessment and plan (1) Nausea Current Visit: Yes Status: Acute Assessment and plan: Resolved. Continue antiemetics as ordered PRN, - has not needed since midday yesterday. (2) Constipation Current Visit: Yes Status: Acute Assessment and plan: No BM since admission. Give dose Miralax today (3) Dyspnea Current Visit: Yes Status: Acute Assessment and plan: Improved with current therapy. MOnitor Qualifiers: Dyspnea type: unspecified Qualified Code(s): R06.00 - Dyspnea, unspecified (4) Goals of care, counseling/discussion Current Visit: Yes Status: Acute Assessment and plan: Patient's son from [place] flying in later today - will meet with him at 1000 tomorrow to discuss discharge disposition. Patient will most likely have to private pay if enrolls in hospice - he may decide to use some more skilled days prior to enrolling. (5) Severe anemia Current Visit: No Status: Acute - Time Spent With Patient Total time spent is greater than 50% in coordination of care (as documented) at patient's floor/unit and/or counseling patient: 25 - 35 minutes - Subjective Interval history: Patient up in chair. Nausea has resolved and stated she ate well. Hgb stable at 10.4 this am. Plt 62. Denies pain or discomfort. Denies shortness of breath. C/o constipation - Constitutional Vitals: Abnormal lab results WBC 13.8 K/mcL (4.3-11.1) H 01/02/17 04:59 RBC 3.34 M/mcL (3.82-4.97) L 01/02/17 04:59 Hgb 10.1 g/dL (11.5-15.4) L 01/02/17 04:59 Hct 29.7 % (35.3-44.9) L 01/02/17 04:59 RDW 19.2 % (11.5-14.5) H 01/02/17 04:59 Plt Count 62 K/mcL (140-400) L 01/02/17 04:59 MPV 12.8 fL (9.4-12.4) H 01/02/17 04:59 Band Neutrophils % 8.0 % (0-4) H 01/02/17 04:59 Monocytes # 2.8 K/mcL (0.0-1.3) H 01/02/17 04:59 Nucleated RBCs/100 WBC 0.2 /100 WBC (0) H 01/02/17 04:59 Hyposegmented Neuts Present (Not Present) A 01/02/17 04:59 Platelet Estimate Decreased (Normal) L 01/02/17 04:59 Immature Plt Fraction 13.7 % (1.1-6.1) H 01/02/17 04:59 Anisocytosis 1+ (Not Present) A 01/02/17 04:59 Macrocytosis Present (Not Present) A 12/31/16 01:24 PT 12.9 Seconds (9.4-12.1) H 12/31/16 00:20 Sodium 132 mEq/L (136-145) L 01/02/17 04:59 Potassium 3.1 mEq/L (3.5-4.5) L 01/02/17 04:59 Chloride 94 mEq/L (98-109) L 01/02/17 04:59 BUN 57 mg/dL (7-20) H 01/02/17 04:59 Creatinine 1.94 mg/dL (0.57-1.11) H 01/02/17 04:59 Est GFR ( Amer) 30 (> 60) L 01/02/17 04:59 Est GFR (Non-Af Amer) 24 (> 60) L 01/02/17 04:59 BUN/Creatinine Ratio 29 (6-26) H 01/02/17 04:59 Glucose 137 mg/dL (70-99) H 01/02/17 04:59 POC Glucose 161 (58-89) H 01/02/17 08:00 Calcium 8.0 mg/dL (8.6-10.8) L 01/02/17 04:59 Troponin I 0.04 ng/mL (0-0.03) H* 12/31/16 00:20 B-Natriuretic Peptide 158 pg/mL (0-100) H 12/31/16 00:20 General appearance: Present: no acute distress - Expanded Respiratory Exam Location: rales: Left, Right, Lower - Cardiovascular Cardiovascular exam: Present: irregular rhythm - GI/Abdominal GI/Abdominal exam: Present: normal bowel sounds, soft - Extremities Exam Additional comments: 2+ edema bilateral lower extremity edema - Neurological Exam Neurological exam: Present: alert, strengths equal and symetr throughout Additional comments: Oriented to name and place. - Skin Skin exam: Present: dry, pallor, warm Palliative Quality Palliative Quality: Screen for Code Status: Yes, Screen for Goals of Care: Yes, Screen for Pain: Yes, If Pain Regimen Started, Initiate Bowel Regimen: Yes, Screen for Nausea/Vomitting: Yes Code Status: 12/31/16 08:51 DNR [Resuscitation Status: Active] [RES] Routine Comment: d/w patient AAOx3 Resuscitation Status: [id number] - Labs CBC & Chem 7: 01/02/17 04:59 01/02/17 04:59 Labs: Laboratory Results - last 24 hr 01/01/17 01/01/17 01/01/17 08:05 11:55 16:15 WBC RBC Hgb Hct MCV MCH MCHC RDW Plt Count MPV Seg Neutrophils % Band Neutrophils % Lymphocytes % Monocytes % Neutrophils # Lymphocytes # Monocytes # Nucleated RBCs/100 WBC Hyposegmented Neuts Platelet Estimate Immature Plt Fraction Anisocytosis Sodium Potassium Chloride Carbon Dioxide BUN Creatinine Est GFR ( Amer) Est GFR (Non-Af Amer) BUN/Creatinine Ratio Glucose POC Glucose 175 H 138 H 138 H Calculated Osmolality Calcium 01/01/17 01/02/17 01/02/17 21:18 04:59 04:59 WBC 13.8 H RBC 3.34 L Hgb 10.1 L Hct 29.7 L MCV 88.9 MCH 30.2 MCHC 34.0 RDW 19.2 H Plt Count 62 L MPV 12.8 H Seg Neutrophils % 42.0 Band Neutrophils % 8.0 H Lymphocytes % 30.0 Monocytes % 20.0 Neutrophils # 6.9 Lymphocytes # 4.1 Monocytes # 2.8 H Nucleated RBCs/100 WBC 0.2 H Hyposegmented Neuts Present A Platelet Estimate Decreased L Immature Plt Fraction 13.7 H Anisocytosis 1+ A Sodium 132 L Potassium 3.1 L Chloride 94 L Carbon Dioxide 25 BUN 57 H Creatinine 1.94 H Est GFR ( Amer) 30 L Est GFR (Non-Af Amer) 24 L BUN/Creatinine Ratio 29 H Glucose 137 H POC Glucose 160 H Calculated Osmolality 292 Calcium 8.0 L 01/02/17 01/02/17 07:40 08:00 WBC RBC Hgb Hct MCV MCH MCHC RDW Plt Count MPV Seg Neutrophils % Band Neutrophils % Lymphocytes % Monocytes % Neutrophils # Lymphocytes # Monocytes # Nucleated RBCs/100 WBC Hyposegmented Neuts Platelet Estimate Immature Plt Fraction Anisocytosis Sodium Potassium Chloride Carbon Dioxide BUN Creatinine Est GFR ( Amer) Est GFR (Non-Af Amer) BUN/Creatinine Ratio Glucose POC Glucose 155 H 161 H Calculated Osmolality Calcium - ABG Interpretation ABG results: PT/INR, D-dimer PT 12.9 Seconds (9.4-12.1) H 12/31/16 00:20 Consult Discharge Plan - Plan Referrals: Franklin Corral MD [Primary Care Provider] -
[2017-01-02] MEDS: Aspirin 81 MG TAB.CHEW PO SCH (10:58)
[2017-01-02] MEDS: Lisinopril-HCTZ 20-12.5mg TABLET PO SCH (10:58)
[2017-01-02] MEDS: amLODIPine 5 MG TABLET PO SCH (10:59)
[2017-01-02] MEDS: Insulin DETEMIR 100 UNIT/ML X5UNITS SQ SCH (11:04)
[2017-01-02] MEDS: Azithromycin 500 MG in D5% in Water 250 ML IVPB SCH (14:37)
--- NOTE | 2017-01-02 18:07 | Internal Med Progress Note ---
Date of Encounter: 01/02/17 Time of Encounter: 18:03 - Assessment and plan (1) Severe anemia Current Visit: No Status: Acute Assessment and plan: Hemoglobin has responded nicely to the transfusion. (2) CKD stage 4 secondary to hypertension Current Visit: No Status: Chronic Assessment and plan: Kidney function tests looked to be fairly stable (3) Hypertension Current Visit: No Status: Chronic Qualifiers: Hypertension type: essential hypertension Qualified Code(s): I10 - Essential (primary) hypertension (4) Right upper lobe pneumonia Current Visit: Yes Status: Acute Assessment and plan: Her white count is elevated some. But it is right after her transfusion. Multifocal to the pneumonia pattern. See after suspect the possibility of gram- negative pneumonia. I am going to increase her Rocephin to 1 g IV twice daily. She does have some history of episodic blood transfusions but she has not had a couple of hospitalizations in the past 2 years. ( at least in this institution ) Qualifiers: Pneumonia type: due to unspecified organism Qualified Code(s): J18.1 - Lobar pneumonia, unspecified organism (5) CHF (congestive heart failure) Current Visit: Yes Status: Acute Assessment and plan: Oxygen status is requiring 4-5 L nasal cannula. Only give her 1 time dose of Lasix just in case some of this is pulmonary edema. She has not had an echocardiogram done for some time from what I can tell. I see no evidence of which suggest that she has any particular type of heart failure but I suspect she probably has a combined systolic and diastolic congestive heart failure. I am treating her empirically. There is a desire here by the patient not to be very aggressive and do a lot of testing. I will try to abide by her wishes. Appreciate Gabriela Rosas's help from palliative care Qualifiers: Congestive heart failure type: combined Congestive heart failure chronicity : acute Qualified Code(s): I50.41 - Acute combined systolic (congestive) and diastolic (congestive) heart failure - Time Spent With Patient 25 - 35 minutes - Subjective Interval history: She denies any nausea today. She states she feels much better from that standpoint. She still states she feels a little short of breath. She is using 4-5 L per nasal cannula to keep her oxygen sats up. She did get 2 units of blood yesterday. - Constitutional Vitals: Temp Pulse Resp BP Pulse Ox 98.0 F 73 16 120/68 94 L 01/02/17 15:25 01/02/17 15:25 01/02/17 15:25 01/02/17 15:25 01/02/17 15:25 General appearance: Present: A&O X 2, mild distress, answers questions appropriately - Respiratory Respiratory exam: Present: CTAB, rales (At both bases) - Cardiovascular Cardiovascular exam: Present: RRR - Skin Skin exam: Present: dry, normal color Internal Medicine: Result - Labs CBC & Chem 7: 01/02/17 04:59 01/02/17 04:59 Labs: Short CBC 01/02/17 Range/Units 04:59 WBC 13.8 H (4.3-11.1) K/mcL Hgb 10.1 L (11.5-15.4) g/dL Hct 29.7 L (35.3-44.9) % Plt Count 62 L (140-400) K/mcL Neutrophils # 6.9 (1.6-8.9) K/mcL BMP 01/02/17 04:59 Sodium 132 L Potassium 3.1 L Chloride 94 L Carbon Dioxide 25 BUN 57 H Creatinine 1.94 H Glucose 137 H Calcium 8.0 L - ABG Interpretation ABG results: PT/INR, D-dimer PT 12.9 Seconds (9.4-12.1) H 12/31/16 00:20 Consult Discharge Plan - Plan Referrals: Franklin Corral MD [Primary Care Provider] -
[2017-01-02] MEDS ORDERED: Furosemide 20 MG/2 ML VIAL IVP ONE (18:12)
[2017-01-03] MEDS ORDERED: Furosemide 40 MG/4 ML VIAL IVP ONE ×2 (00:06→10:10)
[2017-01-03] MEDS ORDERED: *HR* LORazepam 0.5 MG TABLET PO ONE (00:06)
[2017-01-03 03:58] LABS: Basophils % 0.1 %; Hemoglobin 9.8 g/dL (11.5-15.4); Mean Platelet Volume 13.7 fL (9.4-12.4)
[2017-01-03 03:59] LABS: Eosinophils % 0.1 %; Hematocrit 29.3 % (35.3-44.9); Immature Granulocytes % 1.4 % (0-4); Immature Platelets 14.9 % (1.1-6.1); Lymphocytes # 2.5 K/mcL (0.6-4.6); Mean Corpuscular HGB Conc 33.4 g/dL (31.6-35.5); Mean Corpuscular Volume 89.6 fL (83.0-100.0); Monocytes # 3.9 K/mcL (0.0-1.3); Monocytes % 27.5 %; Neutrophils # 7.4 K/mcL (1.6-8.9); Red Blood Count 3.27 M/mcL (3.82-4.97); Red Cell Distribution Width 18.7 % (11.5-14.5); Segmented Neutrophils % 52.9 %
[2017-01-03 04:02] LABS: Platelet Count 56 K/mcL (140-400)
[2017-01-03 04:12] LABS: Calcium 8.6 mg/dL (8.6-10.8); Potassium 2.9 mEq/L (3.5-4.5)
[2017-01-03] MEDS: Albuterol 2.5 MG/3 ML NEBULIZER IH PRN ×2 (04:21→07:28)
[2017-01-03] MEDS ORDERED: Racepinephrine Neb 0.5 ML VIAL IH ONE (04:47)
[2017-01-03] MEDS ORDERED: *HR* LORazepam 2 MG/ML VIAL IVP ONE (04:48)
[2017-01-03] MEDS: Furosemide 20 MG TABLET PO SCH ×2 (08:43→09:45)
[2017-01-03] MEDS: amLODIPine 5 MG TABLET PO SCH (08:43)
[2017-01-03] MEDS: Azithromycin 500 MG in D5% in Water 250 ML IVPB SCH (08:43)
[2017-01-03] MEDS: Aspirin 81 MG TAB.CHEW PO SCH (08:43)
[2017-01-03] MEDS: Lisinopril-HCTZ 20-12.5mg TABLET PO SCH (08:43)
[2017-01-03] MEDS: Insulin DETEMIR 100 UNIT/ML X5UNITS SQ SCH (09:46)
[2017-01-03] MEDS: Insulin LISPRO 300 UNITS/3 ML VIAL SQ SCH ×6 (09:52→17:19)
--- NOTE | 2017-01-03 09:57 | Internal Med Progress Note ---
Date of Encounter: 01/03/17 Time of Encounter: 09:53 - Assessment and plan (1) Pneumonia Current Visit: Yes Status: Acute Qualifiers: Pneumonia type: due to unspecified organism Laterality: left Lung location: upper lobe of lung Qualified Code(s): J18.1 - Lobar pneumonia, unspecified organism (2) Hypokalemia Current Visit: Yes Status: Acute Assessment and plan: severe supplement po and iv (3) Severe anemia Current Visit: No Status: Chronic Assessment and plan: received transfusion (4) CKD stage 4 secondary to hypertension Current Visit: No Status: Chronic Assessment and plan: chronic (5) Hypertension Current Visit: No Status: Chronic Assessment and plan: ok control Qualifiers: Hypertension type: essential hypertension Qualified Code(s): I10 - Essential (primary) hypertension (6) Type 2 diabetes mellitus Current Visit: No Status: Chronic Qualifiers: Diabetes mellitus complication status: with kidney complications Diabetes mellitus complication detail: with chronic kidney disease Diabetes mellitus chcf insulin use: with chcf use Chronic kidney disease stage: stage 4 (severe) Qualified Code(s): E11.22 - Type 2 diabetes mellitus with diabetic chronic kidney disease; N18.4 - Chronic kidney disease, stage 4 (severe); Z79.4 - intermediate (current) use of insulin (7) HLD (hyperlipidemia) Current Visit: No Status: Chronic Assessment and plan: chronic Qualifiers: Hyperlipidemia type: other hyperlipidemia Qualified Code(s): E78.4 - Other hyperlipidemia (8) Essential hypertension Current Visit: No Status: Chronic (9) CHF (congestive heart failure) Current Visit: Yes Status: Acute Assessment and plan: worsening will change po lasix to iv Qualifiers: Congestive heart failure type: systolic Congestive heart failure chronicity : acute on chronic Qualified Code(s): I50.23 - Acute on chronic systolic ( congestive) heart failure - Subjective Interval history: patent with history of ckd, severe anemia, cml and mds, atrila fib dementia , diabetes htn admitted with incraesed sob and chf now has pneumonia as well she is DNR and son has agreed for hospice take over chest x ray shows worsening chf - Constitutional Vitals: Temp Pulse Resp BP Pulse Ox 98.5 F 58 20 145/73 95 01/03/17 06:40 01/03/17 06:40 01/03/17 07:29 01/03/17 06:40 01/03/17 07:29 General appearance: Present: A&O X 2, mild distress, answers questions appropriately - Eye Eye exam: Present: PERRL, conjuntiva pink, sclera anicteric Pupils: Present: PERRL - Neck Neck exam general surgery: Present: supple, trachea midline. Absent: lymphadenopathy - Respiratory Respiratory exam: Present: decreased breath sounds, rales, rhonchi - Cardiovascular Cardiovascular exam: Present: irregular rhythm - GI/Abdominal GI/Abdominal exam: Present: soft - Extremities Exam Extremities exam: Present: warm Internal Medicine: Result - Labs CBC & Chem 7: 01/03/17 03:20 01/03/17 03:20 Labs: Short CBC 01/03/17 Range/Units 03:20 WBC 14.0 H (4.3-11.1) K/mcL Hgb 9.8 L (11.5-15.4) g/dL Hct 29.3 L (35.3-44.9) % Plt Count 56 L (140-400) K/mcL Neutrophils # 7.4 (1.6-8.9) K/mcL BMP 01/03/17 03:20 Sodium 136 Potassium 2.9 L Chloride 95 L Carbon Dioxide 28 BUN 61 H Creatinine 1.83 H Glucose 93 Calcium 8.6 - ABG Interpretation ABG results: PT/INR, D-dimer PT 12.9 Seconds (9.4-12.1) H 12/31/16 00:20 - Impressions Impressions Chest X-Ray 01/02/17 23:35 IMPRESSION: Increased pulmonary edema D/ / Chava Thomas MD / Chava Thomas MD Interpreting Provider: Chava Thomas MD Consult Discharge Plan - Plan Referrals: Franklin Corral MD [Primary Care Provider] -
[2017-01-03] MEDS ORDERED: *HR* LORazepam Oral Conc 2 MG/ML PO PRN (10:35)
--- NOTE | 2017-01-03 11:57 | Palliative Progress Note ---
Date of Encounter: 01/03/17 Time of Encounter: 11:00 - Assessment and plan (1) Nausea Current Visit: Yes Status: Acute Assessment and plan: Continue antiemetics PRN. Has not utilized. (2) Constipation Current Visit: Yes Status: Acute (3) Dyspnea Current Visit: Yes Status: Acute Assessment and plan: CXR continue with pulmonary edema. Receiving IV Lasix and supportive oxygen/ aerosols. Will add low dose Roxanol for assistance of work breathing as she will be discharged with hospice care this weekend. Qualifiers: Dyspnea type: unspecified Qualified Code(s): R06.00 - Dyspnea, unspecified (4) Goals of care, counseling/discussion Current Visit: Yes Status: Acute Assessment and plan: Met with son Rosalio Booth. He desires her to go to [facility] with [facility] hospice and has already planned this with the facility. He has already spoken to [facility] hospice admission coordinator as well. Transition code status to DNRCC and state form completed and signed by son. He was wanting discharge for today. After discussing with DR. Esteves, Hospitalist, he desire to treat pt pulmonary edema as she is very symptomatic and uncomfortable. Explained this to son in 2 different conversations - he still desires discharge today, but understands that we need to keep her until tomorrow, and she can discharge if more stable. Referral has been made to [facility] hospice and info faxed per SALINA Brice. Scripts for Roxanol and Ativan in pt record to be sent with her to [facility]. (5) Severe anemia Current Visit: No Status: Chronic - Time Spent With Patient Total time spent is greater than 50% in coordination of care (as documented) at patient's floor/unit and/or counseling patient: 25 - 35 minutes - Subjective Interval history: Patient up in chair. Dyspneic yesterday pm and again this am. Has been unable to tolerate being in bed, Son Rosalio Booth arrived from [place] and is at bedside. K - 2.9 and being replaced. Receiving additional IV Lasix today. Hgb stable at 10.1 platelets decreased to 56. - Constitutional Vitals: Abnormal lab results WBC 14.0 K/mcL (4.3-11.1) H 01/03/17 03:20 RBC 3.27 M/mcL (3.82-4.97) L 01/03/17 03:20 Hgb 9.8 g/dL (11.5-15.4) L 01/03/17 03:20 Hct 29.3 % (35.3-44.9) L 01/03/17 03:20 RDW 18.7 % (11.5-14.5) H 01/03/17 03:20 Plt Count 56 K/mcL (140-400) L 01/03/17 03:20 MPV 13.7 fL (9.4-12.4) H 01/03/17 03:20 Band Neutrophils % 8.0 % (0-4) H 01/02/17 04:59 Monocytes # 3.9 K/mcL (0.0-1.3) H 01/03/17 03:20 Nucleated RBCs/100 WBC 0.2 /100 WBC (0) H 01/02/17 04:59 Hyposegmented Neuts Present (Not Present) A 01/02/17 04:59 Platelet Estimate Decreased (Normal) L 01/02/17 04:59 Immature Plt Fraction 14.9 % (1.1-6.1) H 01/03/17 03:20 Anisocytosis 1+ (Not Present) A 01/02/17 04:59 Macrocytosis Present (Not Present) A 12/31/16 01:24 PT 12.9 Seconds (9.4-12.1) H 12/31/16 00:20 Potassium 2.9 mEq/L (3.5-4.5) L 01/03/17 03:20 Chloride 95 mEq/L (98-109) L 01/03/17 03:20 BUN 61 mg/dL (7-20) H 01/03/17 03:20 Creatinine 1.83 mg/dL (0.57-1.11) H 01/03/17 03:20 Est GFR ( Amer) 32 (> 60) L 01/03/17 03:20 Est GFR (Non-Af Amer) 26 (> 60) L 01/03/17 03:20 BUN/Creatinine Ratio 33 (6-26) H 01/03/17 03:20 POC Glucose 176 (58-89) H 01/03/17 10:55 Troponin I 0.04 ng/mL (0-0.03) H* 12/31/16 00:20 B-Natriuretic Peptide 147 pg/mL (0-100) H 01/03/17 10:20 General appearance: Present: mild distress - Expanded Respiratory Exam Location: decreased breath sounds: Left, Right, Upper, rales: Left, Right, Lower - Cardiovascular Cardiovascular exam: Present: irregular rhythm - GI/Abdominal GI/Abdominal exam: Present: hypoactive bowel sounds, soft - Extremities Exam Additional comments: 2-3+ edema bilateral lower extremities - Neurological Exam Neurological exam: Present: alert Additional comments: Oriented to name and place. - Psychiatric Psychiatric exam: Present: normal affect, normal mood - Skin Skin exam: Present: dry, pallor, warm Palliative Quality Palliative Quality: Screen for Code Status: Yes, Screen for Goals of Care: Yes, Screen for Pain: Yes, If Pain Regimen Started, Initiate Bowel Regimen: Yes, Screen for Nausea/Vomitting: Yes Code Status: 12/31/16 08:51 DNR [Resuscitation Status: Active] [RES] Routine Comment: d/w patient AAOx3 Resuscitation Status: [id number] 01/03/17 10:37 DNR [Resuscitation Status: Active] [RES] Routine Comment: Resuscitation Status: DNR-Comfort Care - Labs CBC & Chem 7: 01/03/17 03:20 01/03/17 03:20 Labs: Laboratory Results - last 24 hr 01/02/17 01/02/17 01/03/17 15:54 20:19 03:20 WBC 14.0 H RBC 3.27 L Hgb 9.8 L Hct 29.3 L MCV 89.6 MCH 30.0 MCHC 33.4 RDW 18.7 H Plt Count 56 L MPV 13.7 H Immature Gran % 1.4 Seg Neutrophils % 52.9 Lymphocytes % 18.0 Monocytes % 27.5 Eosinophils % 0.1 Basophils % 0.1 Neutrophils # 7.4 Lymphocytes # 2.5 Monocytes # 3.9 H Eosinophils # 0.0 Basophils # 0.0 Immature Plt Fraction 14.9 H Sodium Potassium Chloride Carbon Dioxide BUN Creatinine Est GFR ( Amer) Est GFR (Non-Af Amer) BUN/Creatinine Ratio Glucose POC Glucose 189 H 109 H Calculated Osmolality Calcium B-Natriuretic Peptide 01/03/17 01/03/17 01/03/17 03:20 07:43 10:20 WBC RBC Hgb Hct MCV MCH MCHC RDW Plt Count MPV Immature Gran % Seg Neutrophils % Lymphocytes % Monocytes % Eosinophils % Basophils % Neutrophils # Lymphocytes # Monocytes # Eosinophils # Basophils # Immature Plt Fraction Sodium 136 Potassium 2.9 L Chloride 95 L Carbon Dioxide 28 BUN 61 H Creatinine 1.83 H Est GFR ( Amer) 32 L Est GFR (Non-Af Amer) 26 L BUN/Creatinine Ratio 33 H Glucose 93 POC Glucose 122 H Calculated Osmolality 299 Calcium 8.6 B-Natriuretic Peptide 147 H 01/03/17 10:55 WBC RBC Hgb Hct MCV MCH MCHC RDW Plt Count MPV Immature Gran % Seg Neutrophils % Lymphocytes % Monocytes % Eosinophils % Basophils % Neutrophils # Lymphocytes # Monocytes # Eosinophils # Basophils # Immature Plt Fraction Sodium Potassium Chloride Carbon Dioxide BUN Creatinine Est GFR ( Amer) Est GFR (Non-Af Amer) BUN/Creatinine Ratio Glucose POC Glucose 176 H Calculated Osmolality Calcium B-Natriuretic Peptide - Impressions Impressions Chest X-Ray 01/02/17 23:35 IMPRESSION: Increased pulmonary edema D/ / Chava Thomas MD / Chava Thomas MD Interpreting Provider: Chava Thomas MD - ABG Interpretation ABG results: PT/INR, D-dimer PT 12.9 Seconds (9.4-12.1) H 12/31/16 00:20 Consult Discharge Plan - Plan Referrals: Franklin Corral MD [Primary Care Provider] -
[2017-01-03] MEDS: Morphine Oral CONC 5 MG/0.25 ML ORAL.SYG PO PRN ×2 (14:11→18:45)
[2017-01-03] MEDS: Furosemide 40 MG/4 ML VIAL IVP SCH (19:31)
[2017-01-03] MEDS: Magnesium Sulfate 2 GM in D5% in Water 100 ML IVPB SCH ×2 (20:05→22:37)
[2017-01-04] MEDS: Morphine Oral CONC 5 MG/0.25 ML ORAL.SYG PO PRN ×2 (03:48→15:21)
[2017-01-04 04:47] LABS: Hematocrit 30.2 % (35.3-44.9); Hemoglobin 9.6 g/dL (11.5-15.4); Immature Platelets 14.3 % (1.1-6.1); Mean Corpuscular HGB Conc 31.8 g/dL (31.6-35.5); Mean Corpuscular Hemoglobin 29.3 pg (28.0-33.3); Mean Corpuscular Volume 92.1 fL (83.0-100.0); Mean Platelet Volume 13.1 fL (9.4-12.4); Red Blood Count 3.28 M/mcL (3.82-4.97); Red Cell Distribution Width 18.6 % (11.5-14.5)
[2017-01-04 05:01] LABS: Calcium 8.7 mg/dL (8.6-10.8); Magnesium 2.6 mg/dL (1.6-2.6)
[2017-01-04 05:02] LABS: Potassium 4.7 mEq/L (3.5-4.5)
--- NOTE | 2017-01-04 07:21 | Discharge Summary ---
Date of Encounter: 01/04/17 Time of Encounter: 07:20 - Discharge Diagnosis (1) Pneumonia Priority: Primary Status: Acute Comments: clinically better patient now hospice and comfort measures only Qualifiers: Pneumonia type: due to unspecified organism Laterality: left Lung location: upper lobe of lung Qualified Code(s): J18.1 - Lobar pneumonia, unspecified organism (2) Hypokalemia Priority: Secondary Status: Acute Comments: resolved (3) Severe anemia Priority: Secondary Status: Chronic Comments: chronic and receives transfusion (4) CKD stage 4 secondary to hypertension Priority: Secondary Status: Chronic Comments: chronic and stable (5) Hypertension Priority: Secondary Status: Chronic Comments: well controlled Qualifiers: Hypertension type: essential hypertension Qualified Code(s): I10 - Essential (primary) hypertension (6) Type 2 diabetes mellitus Priority: Secondary Status: Chronic Comments: chronic Qualifiers: Diabetes mellitus complication status: with kidney complications Diabetes mellitus complication detail: with chronic kidney disease 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 Chronic kidney disease stage: stage 4 (severe) Qualified Code(s): E11.22 - Type 2 diabetes mellitus with diabetic chronic kidney disease; N18.4 - Chronic kidney disease, stage 4 (severe); 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 (7) HLD (hyperlipidemia) Priority: Secondary Status: Chronic Qualifiers: Hyperlipidemia type: other hyperlipidemia Qualified Code(s): E78.4 - Other hyperlipidemia (8) Essential hypertension Priority: Secondary Status: Chronic Comments: well controlled (9) CHF (congestive heart failure) Priority: Secondary Status: Chronic Comments: resolving clinically better Qualifiers: Congestive heart failure type: systolic Congestive heart failure chronicity : acute on chronic Qualified Code(s): I50.23 - Acute on chronic systolic ( congestive) heart failure - Discharge Medications Prescriptions: Morphine Oral CONC [Roxanol] 5 mg PO Q4HR PRN #30 oral.syg PRN Reason: dyspnea/pain RX: Morphine Oral CONC [Roxanol] 5 mg PO Q4HR PRN #30 oral.syg PRN Reason: dyspnea/pain RX: LORazepam Oral Conc [Ativan Oral Conc] 1 mg PO Q6HR PRN #30 mls PRN Reason: Anxiety RX: LORazepam Oral Conc [Ativan Oral Conc] 1 mg PO Q6H PRN #30 mls PRN Reason: anxiety,restlessness Home Medications: RX: Acetaminophen [Non-Aspirin Extra Strength] 1,000 mg PO BID 12/31/16 [History ] RX: Amlodipine Besylate 5 mg PO DAILY 12/31/16 [History] RX: Aspirin 81 mg PO DAILY 12/31/16 [History] RX: Bisacodyl [Dulcolax] 10 mg RC AD PRN 12/31/16 [History] RX: Cetirizine HCl [All Day Allergy] 10 mg PO DAILY PRN 12/31/16 [History] RX: Cyclobenzaprine [Flexeril] 5 mg PO HS PRN 12/31/16 [History] RX: Donepezil HCl [Aricept] 10 mg PO DAILY 12/31/16 [History] RX: Ferrous Sulfate [Iron] 325 mg PO BID 12/31/16 [History] RX: Furosemide [Lasix] 20 mg PO DAILY 12/31/16 [History] RX: Insulin ASPART [NovoLOG] 7 unit SQ TIDWM 12/31/16 [History] RX: Insulin DETEMIR [Levemir Flextouch] 15 unit SQ DAILY 12/31/16 [History] RX: Labetalol HCl 100 mg PO BID 12/31/16 [History] RX: Levothyroxine Sodium [Levoxyl] 75 mcg PO DAILY 12/31/16 [History] RX: Lisinopril-HCTZ 20-12.5 [Prinzide 20-12.5] 1 tab PO DAILY 12/31/16 [History] RX: Magnesium Hydroxide [Milk of Magnesia] 30 ml PO DAILY PRN 12/31/16 [History] RX: Meclizine HCl [Verticalm] 25 mg PO TID PRN 12/31/16 [History] RX: Omeprazole 20 mg PO BID 12/31/16 [History] RX: Simvastatin [Zocor] 40 mg PO HS 12/31/16 [History] Morphine Oral CONC [Roxanol] 5 mg PO Q4HR PRN #30 oral.syg 01/03/17 [Rx] RX: LORazepam Oral Conc [Ativan Oral Conc] 1 mg PO Q6H PRN #30 mls 01/03/17 [Rx] RX: LORazepam Oral Conc [Ativan Oral Conc] 1 mg PO Q6HR PRN #30 mls 01/04/17 [Rx ] RX: Morphine Oral CONC [Roxanol] 5 mg PO Q4HR PRN #30 oral.syg 01/04/17 [Rx] Allergies/Adverse Reactions: Allergies Penicillins Adverse Reaction (Verified 09/30/16 22:03) Palpitations Vasoconstrictors Adverse Reaction (Uncoded 09/30/16 22:03) Confusion Date of admission: 12/31/16 07:53 Primary care physician: Franklin Corral MD Consults: 12/31/16 07:57 Consult to Palliative Care [CONS] Routine Comment: Consulting Provider: [facility] [place] 12/31/16 08:02 Consult to Oncology [CONS] Routine Consulting Provider: On[facility] Reason for Consult: CML, anemia, MDS Call Completed: No 01/02/17 11:51 Consult to Invasive Line Access Team [CONS] Routine Reason for Consult: limited access Line Type: EPIV 01/03/17 06:12 Consult to Speech Therapy [CONS] Routine Comment: Evaluate, develop and implement POC Reason for Consult: Pt. coughes every time she swallows. Call Completed: No Discharging clinician: Fred Esteves Anticipated date of discharge: 01/04/17 - Patient Status Disposition: Hospice - Medical Facility Condition: Fair Overall status at discharge: patient is not back to baseline - Discharge Instructions Follow Up With: Franklin Corral MD [Primary Care Provider] - - Diet and Activity Activity: increase activity as tolerated Diet: advance to your usual diet Hospital course: Ms. Booth is a 86 year old female - Time Spent with Patient Total time spent providing and/or coordinating discharge services: - Constitutional Vitals: Temp Pulse Resp BP Pulse Ox 97.7 F 70 14 114/60 92 L 01/04/17 00:57 01/04/17 00:57 01/04/17 00:57 01/04/17 00:57 01/04/17 00:57 General appearance: Present: A&O X 2, mild distress, answers questions appropriately
--- NOTE | 2017-01-04 08:21 | Physician Discharge Referral ---
ExtendedCare Referral Info Transfer To: [facility] Provider in Charge after Transfer: PCP Institutional Level of Care: Skilled - Diagnosis (1) Pneumonia Status: Acute (2) Hypokalemia Status: Acute (3) Severe anemia Status: Chronic (4) CKD stage 4 secondary to hypertension Status: Chronic (5) Hypertension Status: Chronic (6) Type 2 diabetes mellitus Status: Chronic (7) HLD (hyperlipidemia) Status: Chronic (8) Essential hypertension Status: Chronic (9) CHF (congestive heart failure) Status: Chronic - Transfer Medications Prescriptions: Morphine Oral CONC [Roxanol] 5 mg PO Q4HR PRN #30 oral.syg PRN Reason: dyspnea/pain RX: Morphine Oral CONC [Roxanol] 5 mg PO Q4HR PRN #30 oral.syg PRN Reason: dyspnea/pain RX: LORazepam Oral Conc [Ativan Oral Conc] 1 mg PO Q6HR PRN #30 mls PRN Reason: Anxiety RX: LORazepam Oral Conc [Ativan Oral Conc] 1 mg PO Q6H PRN #30 mls PRN Reason: anxiety,restlessness Home Medications: RX: Acetaminophen [Non-Aspirin Extra Strength] 1,000 mg PO BID 12/31/16 [History ] RX: Amlodipine Besylate 5 mg PO DAILY 12/31/16 [History] RX: Aspirin 81 mg PO DAILY 12/31/16 [History] RX: Bisacodyl [Dulcolax] 10 mg RC AD PRN 12/31/16 [History] RX: Cetirizine HCl [All Day Allergy] 10 mg PO DAILY PRN 12/31/16 [History] RX: Cyclobenzaprine [Flexeril] 5 mg PO HS PRN 12/31/16 [History] RX: Donepezil HCl [Aricept] 10 mg PO DAILY 12/31/16 [History] RX: Ferrous Sulfate [Iron] 325 mg PO BID 12/31/16 [History] RX: Furosemide [Lasix] 20 mg PO DAILY 12/31/16 [History] RX: Insulin ASPART [NovoLOG] 7 unit SQ TIDWM 12/31/16 [History] RX: Insulin DETEMIR [Levemir Flextouch] 15 unit SQ DAILY 12/31/16 [History] RX: Labetalol HCl 100 mg PO BID 12/31/16 [History] RX: Levothyroxine Sodium [Levoxyl] 75 mcg PO DAILY 12/31/16 [History] RX: Lisinopril-HCTZ 20-12.5 [Prinzide 20-12.5] 1 tab PO DAILY 12/31/16 [History] RX: Magnesium Hydroxide [Milk of Magnesia] 30 ml PO DAILY PRN 12/31/16 [History] RX: Meclizine HCl [Verticalm] 25 mg PO TID PRN 12/31/16 [History] RX: Omeprazole 20 mg PO BID 12/31/16 [History] RX: Simvastatin [Zocor] 40 mg PO HS 12/31/16 [History] Morphine Oral CONC [Roxanol] 5 mg PO Q4HR PRN #30 oral.syg 01/03/17 [Rx] RX: LORazepam Oral Conc [Ativan Oral Conc] 1 mg PO Q6H PRN #30 mls 01/03/17 [Rx] RX: LORazepam Oral Conc [Ativan Oral Conc] 1 mg PO Q6HR PRN #30 mls 01/04/17 [Rx ] RX: Morphine Oral CONC [Roxanol] 5 mg PO Q4HR PRN #30 oral.syg 01/04/17 [Rx] Allergies/Adverse Reactions: Allergies Penicillins Adverse Reaction (Verified 09/30/16 22:03) Palpitations Vasoconstrictors Adverse Reaction (Uncoded 09/30/16 22:03) Confusion - Respiratory Orders Smoking Cessation: Smoking cessation has been advised. For more information, call the [place] Tobacco Quit Line at 4-038-QSPQ-NOW. CERTIFICATION: I certify that the transfer of the above named patient to an Extended Care Facility is necessary for the continuing treatment of the diagnosis listed. The above information is true and accurate reflection of patient's current condition. Confidential - Redisclosure prohibited without a patient's written consent.
[2017-01-04] MEDS: amLODIPine 5 MG TABLET PO SCH (09:29)
[2017-01-04] MEDS: Furosemide 40 MG/4 ML VIAL IVP SCH (09:29)
[2017-01-04] MEDS: Lisinopril-HCTZ 20-12.5mg TABLET PO SCH (09:29)
[2017-01-04] MEDS: Insulin DETEMIR 100 UNIT/ML X5UNITS SQ SCH (09:29)
[2017-01-04] MEDS: Aspirin 81 MG TAB.CHEW PO SCH (09:29)
[2017-01-04] MEDS: Azithromycin 500 MG in D5% in Water 250 ML IVPB SCH (09:30)
[2017-01-04] MEDS: Insulin LISPRO 300 UNITS/3 ML VIAL SQ SCH ×4 (09:32→13:22)
[2017-01-04 12:26] VITALS: BP 129/68
== END 2017-01-04 15:52 | disposition hospice, inpatient (51) | DRG 177 ==
LOC: EMEROO 23:34 → 3ANU 23:34
PROVIDERS: ADMIT Internal Medicine; ATTEND Internal Medicine